=== PATIENT | male | born 1965 | race Caucasian/White ===

== ENCOUNTER 2016-06-25 05:57 | Emergency (ER) | payer BC ==
[2016-06-25 06:11] VITALS: BMI 33.1
--- NOTE | 2016-06-25 07:23 | PDOC ---
History of Present Illness - General History Source: Patient Exam Limitations: No Limitations - History of Present Illness Initial Comments: 06/25/16 07:27 The patient is a 50-year-old man with a significant past medical history of hypercholesterolemia, non-insulin dependent diabetes mellitus, gastroesophageal reflux disease, gastritis, diverticulitis who presents to the emergency department for further evaluation of abdominal pain. No fall, trauma. He reports experiencing symptoms of intermittent epigastric pain, described as burning sensations, that woke him up form his sleep this morning at approximately 04:00 AM. He admits that his symptoms are consistent with his history of gastroesophageal reflux disease. No nausea, vomiting. He took Tums for his symptoms, and it did not help. He reports to the ED, as his Tums did not help him and now he endorsing an associated cough that exacerbates his pain. No fever, chills, generalized weakness. No lightheadedness, dizziness, palpitations, headaches No diarrhea, constipation, urinary symptoms. Allergies: Latex. Rubber. Shellfish. IVP Dye. Past Surgical History: Cholecystectomy (2012). (2013) Social History: No tobacco and recreational drug use. Occasional ETOH use. Primary Care Physician: Dr. Brandie Nicole <Sherri Stark - Last Filed: 06/25/16 11:25> <Kristian Downing - Last Filed: 06/25/16 13:30> - General Chief Complaint: Chest Pain Stated Complaint: CHEST PAIN Time Seen by Provider: 06/25/16 07:23 Past History <Sherri Stark - Last Filed: 06/25/16 11:25> - Past Medical History Anemia: No Asthma: No Cancer: No Cardiac Disorders: No CVA: No COPD: No CHF: No Dementia: No Diabetes: Yes (NIDDM) GI Disorders: Yes (ACID REFLUX, DIVERTICULITIS;GASTRITIS) Disorders: No HTN: No Hypercholesterolemia: Yes Liver Disease: No Suicide Attempt (Hx): No Seizures: No Thyroid Disease: No - Surgical History Abdominal Surgery: No Appendectomy: No Cardiac Surgery: No Cholecystectomy: Yes (2012) Lung Surgery: No Neurologic Surgery: No Orthopedic Surgery: No - Immunization History Td Vaccination: Yes Immunization Up to Date: Yes - Psycho/Social/Smoking Cessation Hx Anxiety: No Suicidal Ideation: No Smoking Status: No Smoking History: Never smoked Years of Tobacco Use: 0 Have you smoked in the past 12 months: No Number of Cigarettes Smoked Daily: 0 Cigars Per Day: 0 Information on smoking cessation initiated: No Hx Alcohol Use: Yes (OCCASIONALLY) Drug/Substance Use Hx: No Substance Use Type: None Hx Substance Use Treatment: No <Kristian Downing - Last Filed: 06/25/16 13:30> - Past Medical History Allergies/Adverse Reactions: Allergies Allergy/AdvReac Type Severity Reaction Status Date / Time Latex, Natural Rubber Allergy Itching Verified 06/25/16 06:08 Shellfish Allergy Difficulty Verified 06/25/16 06:08 Breathing IVP DYE Allergy Hives Uncoded 06/25/16 06:08 Home Medications: Ambulatory Orders Metformin HCl [Glucophage -] 500 mg PO HS 07/18/12 Pnv/Iron,Carb/Om-3/FA/Fat 1 [Multivitamin with Minerals Cap] 1 cap PO DAILY Ezetimibe/Simvastatin [Vytorin 10-20 mg Tablet] 1 tab PO HS 10/02/15 Pantoprazole Sodium [Protonix -] 40 mg PO DAILY 06/25/16 Review of Systems - Review of Systems Able to Perform ROS?: Yes Comments:: 06/25/16 07:32 GENERAL/CONSTITUTIONAL: No fever or chills. No weakness. HEAD, EYES, EARS, NOSE AND THROAT: No change in vision. No ear pain or discharge. No sore throat. CARDIOVASCULAR: No chest pain or shortness of breath. RESPIRATORY: No cough, wheezing, or hemoptysis. GASTROINTESTINAL: Yes: Epigastric pain. No nausea, vomiting, diarrhea or constipation. GENITOURINARY: No dysuria, frequency, or change in urination. MUSCULOSKELETAL: No joint or muscle swelling or pain. No neck or back pain. SKIN: No rash NEUROLOGIC: No headache, vertigo, loss of consciousness, or change in strength/ sensation. ENDOCRINE: No increased thirst. No abnormal weight change. HEMATOLOGIC/LYMPHATIC: No anemia, easy bleeding, or history of blood clots. ALLERGIC/IMMUNOLOGIC: No hives or skin allergy. <Sherri Stark - Last Filed: 06/25/16 11:25> *Physical Exam - Vital Signs Last Vital Signs Temp Pulse Resp BP Pulse Ox 97.4 F L 101 H 20 136/82 98 06/25/16 07:17 06/25/16 07:17 06/25/16 06:08 06/25/16 07:17 06/25/16 07:17 - Physical Exam Comments: 06/25/16 07:33 GENERAL: Awake, alert, and fully oriented, in no acute distress HEAD: No signs of trauma EYES: PERRLA, EOMI, sclera anicteric, conjunctiva clear ENT: Auricles normal inspection, hearing grossly normal, nares patent, oropharynx clear without exudates. Moist mucosa NECK: Normal ROM, supple, no lymphadenopathy, JVD, or masses LUNGS: Breath sounds equal, clear to auscultation bilaterally. No wheezes, and no crackles HEART: Regular rate and rhythm, normal S1 and S2, no murmurs, rubs or gallops ABDOMEN: Soft, nontender, normoactive bowel sounds. No guarding, no rebound. No masses EXTREMITIES: Normal range of motion, no edema. No clubbing or cyanosis. No cords, erythema, or tenderness NEUROLOGICAL: Cranial nerves II through XII grossly intact. Normal speech. <Sherri Stark - Last Filed: 06/25/16 11:25> - Vital Signs Last Vital Signs Temp Pulse Resp BP Pulse Ox 97.4 F L 101 H 20 136/82 98 06/25/16 07:17 06/25/16 07:17 06/25/16 06:08 06/25/16 07:17 06/25/16 07:17 <Kristian Downing - Last Filed: 06/25/16 13:30> Heart Score/ECG Review #1 06/25/16 07:47 Reviewed and interpreted by Dr. Kristian Downing IMPRESSION: sinus tachycardia with a rate of 102 bpm. Normal axis. Normal intervals. No STEMI. No changes from previous EKG date 07/2014. <Sherri Stark - Last Filed: 06/25/16 11:25> ED Treatment Course - LABORATORY CBC & Chemistry Diagram: 06/25/16 07:40 06/25/16 07:41 <Sherri Stark - Last Filed: 06/25/16 11:25> - LABORATORY CBC & Chemistry Diagram: 06/25/16 07:40 06/25/16 07:41 <Kristian Downing - Last Filed: 06/25/16 13:30> Medical Decision Making - Medical Decision Making 06/25/16 11:[address] Kumar. 06/25/16 11:[address] Kumar. Case was discussed. <LincolnSherri - Last Filed: 06/25/16 11:25> *DC/Admit/Observation/Transfer - Attestations Scribe Attestion: 06/25/16 07:33 Documentation prepared by Sherri Stark, acting as medical practice manager for Kristian Downing DO. <Sherri Stark - Last Filed: 06/25/16 11:25> - Discharge Dispostion Admit: No - Attestations Physician Attestion: 06/25/16 07:23 I, Dr. Kristian Downing, attest that this document has been prepared under my direction and personally reviewed by me in its entirety. I further attest, that it accurately reflects all work, treatment, procedures and medical decision -making performed by me. <Kristian Downing - Last Filed: 06/25/16 13:30> Diagnosis at time of Disposition: Gastroesophageal reflux disease with esophagitis - Discharge Dispostion Disposition: HOME Condition at time of disposition: Improved - Referrals Referrals: Brandie Nicole MD [Primary Care Provider] - Kristian Kumar MD [Staff Physician] - - Patient Instructions Printed Discharge Instructions: DI for Gastroesophageal Reflux Disease (GERD) Additional Instructions: Mr Wen - I am sorry that this is so uncomfortable. I spoke with both your regular physician and your line operator. Please take your medicine and eat a very bland diet. Please call both of them tomorrow to get a follow up appointment with each of them for later this week. Return to us if worse or any problems. Be Very Careful about your diet. Best- Dr. Kristian Downing - Post Discharge Activity Work/School Note: Back to Work
[2016-06-25] MEDS ORDERED: METOCLOPRAMIDE HCL INJECTION 10 MG/2 ML VIAL IVPB ONE (07:28)
[2016-06-25] MEDS ORDERED: FAMOTIDINE 20 MG/50 ML IVPB 50 ML IVPB ONE ×2 (07:28→07:43)
[2016-06-25] MEDS ORDERED: SODIUM CHLORIDE 1,000 ML IV SCH ×2 (07:30→10:15)
[2016-06-25] MEDS ORDERED: diphenhydrAMINE HCL 12.5 MG/5 ML UNIT-DOSE CUPS PO ONE (07:32)
[2016-06-25] MEDS ORDERED: LIDOCAINE VISCOUS 2% ORAL/TOP 100 ML BOTTLE MM ONE (07:32)
[2016-06-25] MEDS ORDERED: MAG HYDROX/AL HYDROX/SIMETH 30 ML UNIT-DOSE CUP PO ONE (07:32)
[2016-06-25] MEDS ORDERED: METOCLOPRAMIDE HCL INJECTION 10 MG/2 ML VIAL ONE (07:42)
[2016-06-25] MEDS ORDERED: diphenhydrAMINE HCL 25 MG CAPSULE (FP) PO ONE (07:43)
[2016-06-25] MEDS ORDERED: MAG HYDROX/AL HYDROX/SIMETH 30 ML UNIT-DOSE CUP ONE (07:43)
[2016-06-25 07:55] LABS: BASOPHIL 0.3 % (0-2.0); EOSINOPHIL 0.3 % (0-4.5); MCH 30.3 pg (25.7-33.7); MCHC 34.7 g/dl (32.0-35.9); MEAN CELL VOLUME 87.2 fl (80-96); MEAN PLT VOLUME 7.1 fl (7.5-11.1); NEUTROPHILS 79.1 % (42.8-82.8); PLATELET COUNT 177 K/MM3 (134-434); RDW 13.3 % (11.9-15.9); WHITE BLOOD COUNT 9.5 K/mm3 (4.0-10.0)
[2016-06-25 08:12] LABS: INR 0.93 (0.82-1.09); PROTHROMBIN TIME (PATIENT) 10.2 SEC (9.98-11.88)
[2016-06-25 08:24] LABS: ALBUMIN 4.3 g/dl (3.4-5.0); ALK PHOS 62 U/L (45-117); ANION GAP 9 (8-16); BILIRUBIN,TOTAL 0.3 mg/dL (0.2-1.0); CALCIUM 9.9 mg/dL (8.5-10.1); CO2 29 mmol/L (21-32); COCKROFT - GAULT 134.28; CREATININE 0.9 mg/dL (0.7-1.3); GLUCOSE,RANDOM 147 mg/dL (74-106); SGOT/AST 15 U/L (15-37); SGPT/ALT 25 U/L (12-78); TOT PROT 7.4 g/dl (6.4-8.2)
[2016-06-25 08:25] LABS: BILIRUBIN,DIRECT 0.1 mg/dL (0.0-0.2); PHOSPHOROUS 2.6 mg/dL (2.5-4.9)
[2016-06-25 08:29] LABS: TROPONIN I < 0.02 ng/ml (0.00-0.05)
[2016-06-25 08:32] LABS: URINE APPEARANCE CLEAR; URINE BILIRUBIN NEGATIVE (NEGATIVE); URINE BLOOD NEGATIVE (NEGATIVE); URINE COLOR STRAW; URINE GLUCOSE (UA) NEGATIVE (NEGATIVE); URINE KETONE NEGATIVE (NEGATIVE); URINE LEUK ESTERASE NEGATIVE (NEGATIVE); URINE NITRITE NEGATIVE (NEGATIVE); URINE PROTEIN NEGATIVE (NEGATIVE); URINE UROBILINOGEN NEGATIVE E.U./dl (0.2-1.0)
--- NOTE | 2016-06-25 12:21 | EKG ---
Test Reason : Blood Pressure : / mmHG Vent. Rate : 102 BPM Atrial Rate : 102 BPM P-R Int : 170 ms QRS Dur : 094 ms QT Int : 330 ms P-R-T Axes : 056 -02 071 degrees QTc Int : 430 ms SINUS TACHYCARDIA INCOMPLETE RIGHT BUNDLE BRANCH BLOCK Confirmed by FILEMON STOO MD ([id number]) on 06/25/2016 12:21:19 PM Referred By: Confirmed By:FILEMON SOTO MD
[2016-06-25 13:23] LABS: TROPONIN I < 0.02 ng/ml (0.00-0.05)
[2016-06-25 13:29] VITALS: BP 135/84; PULSE 106; TEMP 98.3
== END 2016-06-25 13:44 | disposition home or self-care (01) ==
LOC: JER 05:57
PROC: 3E0337Z Introduction of Electrolytic and Water Balance Substance into Peripheral Vein, Percutaneous Approach (ICD-10-PCS; principal; 2016-06-25)
PROC: 3E033GC Introduction of Other Therapeutic Substance into Peripheral Vein, Percutaneous Approach (ICD-10-PCS; 2016-06-25)
DX: K21.0 Gastro-esophageal reflux disease with esophagitis (principal); E11.9 Type 2 diabetes mellitus without complications; Z79.84 Long term (current) use of oral hypoglycemic drugs; E78.00 Pure hypercholesterolemia, unspecified
CPT/HCPCS: 36415; 71010-TC; 80053; 81003; 82248; 82550; 83036; 83690; 83735; 84100; 84484; 85025; 85610; 93005; 93010; 99285-25

== ENCOUNTER 2016-08-21 06:59 | Day surgery (SDC) | payer BC ==
[2016-08-21 08:18] VITALS: BMI 34.4
[2016-08-21] MEDS ORDERED: PROPOFOL 20 ML ONE (08:52)
[2016-08-21] MEDS ORDERED: MIDAZOLAM HCL 2 MG/2 ML SINGLE DOSE VIAL ONE (08:53)
[2016-08-21 09:38] VITALS: TEMP 97.7
[2016-08-21 10:54] VITALS: BP 129/78; PULSE 95
--- NOTE | 2016-08-22 11:46 | PATH ---
Surgical Pathology Report Patient Name: TROY PEREZ [facility]. Rec. #: [id number] /Age/Gender: 1965 (Age: 50) / M Account: [id number] Location: [facility]-ENDOSCOPY Taken: 08/21/2016 Received: 08/21/2016 Reported: 08/22/2016 Physicians: Kristian Kumar M.D. Specimen(s) Received BX GASTRIC BODY & POLYP Clinical History GERD with esophagitis, dysphagia Schatzki's ring, bile reflux, gastritis, fundic polyp, hiatal hernia 3 cm Final Diagnosis STOMACH, BODY AND POLYP, BIOPSY: FOCALLY POLYPOID FRAGMENTS OF GASTRIC OXYNTIC MUCOSA WITH MILD TO MODERATE CHRONIC GASTRITIS WITH FOCAL SURFACE HYPERPLASTIC CHANGE. NEGATIVE FOR DYSPLASIA. IMMUNOSTAIN FOR H. PYLORI IS NEGATIVE FOR ORGANISMS. Electronically Signed Olu Hamm M.D. Gross Description Received in formalin, labeled "biopsy gastric body and polyp" are 2 garnica, irregular portions of soft tissue averaging 0.4 cm in greatest dimension. The specimens are submitted in toto in one cassette. 08/21/201608/21/2016
== END 2016-08-21 11:10 | disposition home or self-care (01) ==
LOC: JASU-ENDO 06:59
PROVIDERS: ATTEND Internal Medicine Gastroenterology
PROC: 0DB68ZX Excision of Stomach, Via Natural or Artificial Opening Endoscopic, Diagnostic (ICD-10-PCS; 2016-08-21)
PROC: 0D748ZZ Dilation of Esophagogastric Junction, Via Natural or Artificial Opening Endoscopic (ICD-10-PCS; principal; 2016-08-21 08:30)
DX: K22.2 Esophageal obstruction (principal); K44.9 Diaphragmatic hernia without obstruction or gangrene; K31.7 Polyp of stomach and duodenum; K29.70 Gastritis, unspecified, without bleeding; E11.9 Type 2 diabetes mellitus without complications
CPT/HCPCS: 88305-TC; 88342-TC

== ENCOUNTER 2017-02-01 09:08 | Emergency (ER) | payer BC ==
[2017-02-01 09:14] VITALS: BMI 35.4
--- NOTE | 2017-02-01 09:36 | PDOC ---
History of Present Illness <Jocelin Holly - Last Filed: 02/01/17 14:43> - General History Source: Patient Exam Limitations: No Limitations - History of Present Illness Initial Comments: 02/01/17 09:53 The patient is a 51 year old male employee from [employer], with a significant past medical history of NIDDM, HLD, GERD, Diverticulitis, GERD, Gastritis who presents to the emergency department with LLQ abdominal pain for the past 3 days. Patient reports gradual onset of constant, cramping, LLQ abdominal pain associated with diarrhea (nonbloody, nonmucoid). Patient reports the pain is similar to his Diverticulitis. Patient denies any exacerbating or alleviating factors. He denies taking any medications for his pain. Patient is concerned for mass and presents to the ED for further evaluation of his pain. Note, Patient was hospitalized twice for abdominal pain and was diagnosed with Diverticulitis. LBM was this morning, watery pellet stool. Patient denies fever, chills, nausea, vomit, constipation. Patient denies chest pain, headache or dizziness. Patient denies dysuria, frequency, urgency or hematuria. Patient denies sick contacts or recent travel. Allergies: Latex. Rubber. Shellfish. IVP Dye. Past Surgical History: Cholecystectomy (2012) Social History: No tobacco and recreational drug use. Occasional ETOH use. PCP: Dr. 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 Time Seen by Provider: 02/01/17 09:36 Past History - Past Medical History Anemia: No Asthma: No Cancer: No Cardiac Disorders: No CVA: No COPD: No CHF: No DVT: No Dementia: No Diabetes: Yes (NIDDM) GI Disorders: Yes (ACID REFLUX, DIVERTICULITIS;GASTRITIS) Disorders: No HTN: No Hypercholesterolemia: Yes Liver Disease: No Seizures: No Thyroid Disease: No - Surgical History Abdominal Surgery: No Appendectomy: No Cardiac Surgery: No Cholecystectomy: Yes (2012) Lung Surgery: No Neurologic Surgery: No Orthopedic Surgery: No - Immunization History Td Vaccination: Yes Immunization Up to Date: Yes - Suicide/Smoking/Psychosocial Hx Smoking Status: No Smoking History: Never smoked Years of Tobacco Use: 0 Have you smoked in the past 12 months: No Number of Cigarettes Smoked Daily: 0 Cigars Per Day: 0 Information on smoking cessation initiated: No Hx Alcohol Use: Yes (social) Drug/Substance Use Hx: No Substance Use Type: None Hx Substance Use Treatment: No <Jocelin Holly - Last Filed: 02/01/17 14:43> <Hali Ford - Last Filed: 02/01/17 15:06> - Past Medical History Allergies/Adverse Reactions: Allergies Allergy/AdvReac Type Severity Reaction Status Date / Time Latex, Natural Rubber Allergy Itching Verified 02/01/17 09:14 Shellfish Allergy Difficulty Verified 02/01/17 09:14 Breathing IVP DYE Allergy Hives Uncoded 02/01/17 09:14 Home Medications: Ambulatory Orders Metformin HCl [Glucophage -] 500 mg PO HS 07/18/12 Ezetimibe/Simvastatin [Vytorin 10-20 mg Tablet] 1 tab PO DAILY 08/21/16 Mag Carb/Al Hydrox/Alginic AC [Gaviscon Liquid] 15 - 30 ml PO Q6H PRN #355 oz Multivitamins [Multivit ([facility] Formulary)] 1 tab PO DAILY 08/21/16 Pantoprazole Sodium [Protonix] 40 mg PO DAILY 08/21/16 Ciprofloxacin/Ciprofloxa HCl [Cipro Xr 500 mg Tablet] 500 mg PO DAILY #7 tbmp.24hr 02/01/17 Metronidazole [Flagyl] 375 mg PO BID #14 capsule 02/01/17 Review of Systems - Review of Systems Able to Perform ROS?: Yes Comments:: 02/01/17 09:55 GENERAL/CONSTITUTIONAL: No fever or chills. No weakness. HEAD, EYES, EARS, NOSE AND THROAT: No change in vision. No ear pain or discharge. No sore throat. CARDIOVASCULAR: No chest pain or shortness of breath. RESPIRATORY: No cough, wheezing, or hemoptysis. GASTROINTESTINAL: +LLQ abdominal pain. +Diarrhea. No nausea, vomiting, constipation. GENITOURINARY: No dysuria, frequency, or change in urination. MUSCULOSKELETAL: No joint or muscle swelling or pain. No neck or back pain. SKIN: No rash NEUROLOGIC: No headache, vertigo, loss of consciousness, or change in strength/ sensation. ENDOCRINE: No increased thirst. No abnormal weight change. HEMATOLOGIC/LYMPHATIC: No anemia, easy bleeding, or history of blood clots. ALLERGIC/IMMUNOLOGIC: No hives or skin allergy. <Hali Ford - Last Filed: 02/01/17 15:06> *Physical Exam - Vital Signs Last Vital Signs Temp Pulse Resp BP Pulse Ox 98.2 F 107 H 19 127/93 99 02/01/17 09:11 02/01/17 09:11 02/01/17 09:11 02/01/17 09:11 02/01/17 09:11 <Jocelin Holly - Last Filed: 02/01/17 14:43> - Vital Signs Last Vital Signs Temp Pulse Resp BP Pulse Ox 98.2 F 107 H 19 127/93 99 02/01/17 09:11 02/01/17 09:11 02/01/17 09:11 02/01/17 09:11 02/01/17 09:11 - Physical Exam Comments: 02/01/17 09:55 GENERAL: Awake, alert, and fully oriented, in no acute distress HEAD: No signs of trauma EYES: PERRLA, EOMI, sclera anicteric, conjunctiva clear ENT: Auricles normal inspection, hearing grossly normal, nares patent, oropharynx clear without exudates. Moist mucosa NECK: Normal ROM, supple, no lymphadenopathy, JVD, or masses LUNGS: Breath sounds equal, clear to auscultation bilaterally. No wheezes, and no crackles HEART: Regular rate and rhythm, normal S1 and S2, no murmurs, rubs or gallops ABDOMEN: + LLQ tenderness. +Obese. Soft, normoactive bowel sounds. No guarding , no rebound. No masses EXTREMITIES: Normal range of motion, no edema. No clubbing or cyanosis. No cords, erythema, or tenderness NEUROLOGICAL: Cranial nerves II through XII grossly intact. Normal speech, normal gait SKIN: Warm, Dry, normal turgor, no rashes or lesions noted. <Hali Ford - Last Filed: 02/01/17 15:06> ED Treatment Course - LABORATORY CBC & Chemistry Diagram: 02/01/17 09:59 02/01/17 09:59 <Jocelin Holly - Last Filed: 02/01/17 14:43> - LABORATORY CBC & Chemistry Diagram: 02/01/17 09:59 02/01/17 09:59 - Medications Given in the ED: ED Medications Discontinued Medications Generic Name Dose Route Start Last Admin Trade Name Alva PRN Reason Stop Dose Admin Ketorolac Tromethamine 30 mg 02/01/17 09:41 02/01/17 09:46 Toradol Injection - IVPUSH 02/01/17 09:42 30 mg ONCE ONE Administration <Hali Ford - Last Filed: 02/01/17 15:06> Medical Decision Making - Medical Decision Making 02/01/17 15:05 CTAP w.o Contrast IMPRESSION: Findings consistent with acute diverticulitis of the left colon at the junction of the descending and sigmoid colon. No abscess is associated with this process. Clinical correlation and follow-up recommended. Please see above discussion. Reported By: Kaveh Herrera MD 02/01/17 1304 <Hali Ford - Last Filed: 02/01/17 15:06> *DC/Admit/Observation/Transfer - Discharge Dispostion Admit: No <Jocelin Holly - Last Filed: 02/01/17 14:43> - Attestations Scribe Attestion: 02/01/17 09:55 Documentation prepared by Hali Ford, acting as medical laboratory specialist for Jocelin Holly MD <Hali Ford - Last Filed: 02/01/17 15:06> Diagnosis at time of Disposition: Diverticulitis - Discharge Dispostion Disposition: HOME Condition at time of disposition: Good - Prescriptions Prescriptions: Ciprofloxacin/Ciprofloxa HCl [Cipro Xr 500 mg Tablet] 500 mg PO DAILY #7 tbmp.24hr Metronidazole [Flagyl] 375 mg PO BID #14 capsule - Referrals Referrals: Brandie Nicole MD [Primary Care Provider] - - Patient Instructions Printed Discharge Instructions: DI for Diverticulitis Additional Instructions: return to the ED for fever, severe pain, severe nausea and vomiting unable to tolerate food or antibiotics. You should stick to a clear liquid diet for today and a very light diet until you feel better. - Post Discharge Activity Forms/Work/School Notes: Back to Work
[2017-02-01] MEDS ORDERED: KETOROLAC TROMETHAMINE 30 MG/1 ML VIAL IVPUSH ONE (09:41)
[2017-02-01] MEDS ORDERED: KETOROLAC TROMETHAMINE 30 MG/1 ML VIAL ONE (09:53)
[2017-02-01 10:08] LABS: BASOPHIL 0.7 % (0-2.0); EOSINOPHIL 0.4 % (0-4.5); MCHC 33.7 g/dl (32.0-35.9); MEAN CELL VOLUME 89.1 fl (80-96); MEAN PLT VOLUME 7.3 fl (7.5-11.1); NEUTROPHILS 76.5 % (42.8-82.8); PLATELET COUNT 207 K/MM3 (134-434); RDW 13.3 % (11.9-15.9); WHITE BLOOD COUNT 11.5 K/mm3 (4.0-10.0)
[2017-02-01 10:34] LABS: ALBUMIN 4.1 g/dl (3.4-5.0); ALK PHOS 61 U/L (45-117); ANION GAP 5 (8-16); BILIRUBIN,TOTAL 0.6 mg/dL (0.2-1.0); CALCIUM 8.4 mg/dL (8.5-10.1); CO2 29 mmol/L (21-32); CREATININE 1.1 mg/dL (0.7-1.3); GLUCOSE,RANDOM 196 mg/dL (74-106); SGOT/AST 10 U/L (15-37); SGPT/ALT 25 U/L (12-78); TOT PROT 7.4 g/dl (6.4-8.2)
[2017-02-01 10:40] LABS: INR 0.98 (0.82-1.09); PROTHROMBIN TIME (PATIENT) 11.1 SEC (9.98-11.88)
[2017-02-01 10:42] LABS: ACTIVATED PTT 31.6 SECONDS (26.9-34.4)
[2017-02-01] MEDS ORDERED: METRONIDAZOLE 500 MG PREMIXED 500 MG/100 ML MG IVPB ONE ×2 (13:32→13:43)
[2017-02-01] MEDS: CIPROFLOXACIN 400 MG/D5W 400 MG/200 ML IVPB IVPB ONE ×2 (13:42→14:24)
[2017-02-01 15:10] VITALS: BP 116/69; PULSE 83; TEMP 98.1
== END 2017-02-01 15:44 | disposition home or self-care (01) ==
LOC: JER 09:08
PROC: 3E03329 Introduction of Other Anti-infective into Peripheral Vein, Percutaneous Approach (ICD-10-PCS; principal; 2017-02-01)
PROC: 3E0333Z Introduction of Anti-inflammatory into Peripheral Vein, Percutaneous Approach (ICD-10-PCS; 2017-02-01)
DX: K57.92 Diverticulitis of intestine, part unspecified, without perforation or abscess without bleeding (principal); E11.9 Type 2 diabetes mellitus without complications; I10 Essential (primary) hypertension; E78.5 Hyperlipidemia, unspecified; K21.9 Gastro-esophageal reflux disease without esophagitis
CPT/HCPCS: 36415; 74176-TC; 80053; 83690; 85025; 85610; 85730; 99283-25; Q9967

== ENCOUNTER 2017-04-03 12:58 | Emergency (ER) | payer BC ==
[2017-04-03 13:30] VITALS: BMI 34.4
--- NOTE | 2017-04-03 14:32 | PDOC ---
History of Present Illness - General History Source: Patient Exam Limitations: No Limitations - History of Present Illness Initial Comments: 04/03/17 15:16 The patient is a 51 year old female with a significant PMH of non-insulin dependent diabetes, hyperlipidemia, GERD, and diverticulitis who presents to the emergency department with persistent diarrhea beginning approximately 17 hours ago. The patient notes he has had about 10 episodes of non bloody diarrhea since about 9PM last night with some associated minimal diffuse abdominal discomfort. He denies eating anything unusual or out of the ordinary last night. He also notes some dehydration secondary to his diarrhea and minimal nasal congestion. The patient reports receiving a course of antibiotics back in January for treatment of a diverticulitis flare-up but denies antibiotic use since then. Reports this does not feel like his diverticulitis, more like when he has had the stomach flu in the past. The patient denies chest pain, shortness of breath, headache and dizziness. Denies fever, chills, nausea, vomit, and constipation. Denies dysuria, frequency, urgency and hematuria. Allergies: Latex, Natural rubber, IVP dye. Past surgical history: Cholecystectomy (2012). Social history: Occasional alcohol use. No reported cigarette or drug use. PCP: Dr. Nicole <Pop Carver - Last Filed: 04/03/17 15:17> <Edie Tate - Last Filed: 04/03/17 18:12> <Earnest Maurer - Last Filed: 04/04/17 20:02> - General Chief Complaint: Diarrhea Stated Complaint: DIARRHEA Time Seen by Provider: 04/03/17 13:53 Past History <Pop Carver - Last Filed: 04/03/17 15:17> <Edie Tate - Last Filed: 04/03/17 18:12> - Past Medical History Anemia: No Asthma: No Cancer: No Cardiac Disorders: No CVA: No COPD: No CHF: No DVT: No Dementia: No Diabetes: Yes (NIDDM) GI Disorders: Yes (ACID REFLUX, DIVERTICULITIS;GASTRITIS) Disorders: No HTN: No Hypercholesterolemia: Yes Liver Disease: No Seizures: No Thyroid Disease: No - Surgical History Abdominal Surgery: No Appendectomy: No Cardiac Surgery: No Cholecystectomy: Yes (2012) Lung Surgery: No Neurologic Surgery: No Orthopedic Surgery: No - Immunization History Td Vaccination: Yes Immunization Up to Date: Yes - Suicide/Smoking/Psychosocial Hx Smoking Status: No Smoking History: Never smoked Years of Tobacco Use: 0 Have you smoked in the past 12 months: No Number of Cigarettes Smoked Daily: 0 Cigars Per Day: 0 Information on smoking cessation initiated: No Hx Alcohol Use: No Drug/Substance Use Hx: No Substance Use Type: None Hx Substance Use Treatment: No <Earnest Maurer - Last Filed: 04/04/17 20:02> - Past Medical History Allergies/Adverse Reactions: Allergies Allergy/AdvReac Type Severity Reaction Status Date / Time Latex, Natural Rubber Allergy Itching Verified 04/03/17 13:25 Shellfish Allergy Difficulty Verified 04/03/17 13:25 Breathing IVP DYE Allergy Hives Uncoded 04/03/17 13:25 Home Medications: Ambulatory Orders Metformin HCl [Glucophage -] 500 mg PO HS 07/18/12 Multivitamins [Multivit ([facility] Formulary)] 1 tab PO DAILY 08/21/16 Omeprazole 20 mg PO DAILY 04/03/17 Rosuvastatin Calcium [Crestor] 10 mg PO DAILY 04/03/17 Review of Systems - Review of Systems Able to Perform ROS?: Yes Comments:: 04/03/17 15:16 GENERAL/CONSTITUTIONAL: (+) Dehydration. No fever or chills. No weakness. HEAD, EYES, EARS, NOSE AND THROAT: (+) Nasal congestion. No change in vision. No ear pain or discharge. No sore throat. GASTROINTESTINAL: (+) Diarrhea. No nausea, vomiting, or constipation. GENITOURINARY: No dysuria, frequency, or change in urination. CARDIOVASCULAR: No chest pain or shortness of breath. RESPIRATORY: No cough, wheezing, or hemoptysis. MUSCULOSKELETAL: No joint or muscle swelling or pain. No neck or back pain. SKIN: No rash NEUROLOGIC: No headache, vertigo, loss of consciousness, or change in strength/ sensation. ENDOCRINE: No increased thirst. No abnormal weight change. HEMATOLOGIC/LYMPHATIC: No anemia, easy bleeding, or history of blood clots. ALLERGIC/IMMUNOLOGIC: No hives or skin allergy. <Pop Carver - Last Filed: 04/03/17 15:17> *Physical Exam - Vital Signs Last Vital Signs Temp Pulse Resp BP Pulse Ox 98.5 F 104 H 17 129/85 98 04/03/17 13:25 04/03/17 13:25 04/03/17 13:25 04/03/17 13:25 04/03/17 13:25 - Physical Exam Comments: 04/03/17 15:16 GENERAL: Awake, alert, and fully oriented, in no acute distress HEAD: No signs of trauma EYES: PERRLA, EOMI, sclera anicteric, conjunctiva clear ENT: Auricles normal inspection, hearing grossly normal, nares patent, oropharynx clear without exudates. Moist mucosa NECK: Normal ROM, supple, no lymphadenopathy, JVD, or masses LUNGS: Breath sounds equal, clear to auscultation bilaterally. No wheezes, and no crackles HEART: Regular rate and rhythm, normal S1 and S2, no murmurs, rubs or gallops ABDOMEN: Soft, nontender, non distended, hyperactive bowel sounds. No guarding, no rebound. EXTREMITIES: Normal range of motion, no edema. No clubbing or cyanosis. No cords , erythema, or tenderness BACK: No midline spinal tenderness in cervical/thoracic/lumbar region NEUROLOGICAL: Normal speech, cranial nerves intact, negative pronator drift, 5/ 5 strength in all 4 extremities, normal sensation to light touch in all 4 extremities, normal cerebellar exam, normal gait, normal reflexes and tone SKIN: Warm, Dry, normal turgor, no rashes or lesions noted. <Pop Carver - Last Filed: 04/03/17 15:17> - Vital Signs Last Vital Signs Temp Pulse Resp BP Pulse Ox 98.5 F 104 H 17 129/85 98 04/03/17 13:25 04/03/17 13:25 04/03/17 13:25 04/03/17 13:25 04/03/17 13:25 <Edie Tate - Last Filed: 04/03/17 18:12> - Vital Signs Last Vital Signs Temp Pulse Resp BP Pulse Ox 98.5 F 104 H 17 129/85 98 04/03/17 13:25 04/03/17 13:25 04/03/17 13:25 04/03/17 13:25 04/03/17 13:25 <Earnest Maurer - Last Filed: 04/04/17 20:02> ED Treatment Course - LABORATORY CBC & Chemistry Diagram: 04/03/17 15:30 04/03/17 15:30 - ADDITIONAL ORDERS Additional order review: Laboratory Results 04/03/17 04/03/17 16:53 15:30 Sodium 138 Potassium 3.9 Chloride 102 Carbon Dioxide 27 Anion Gap 9 BUN 10 Creatinine 0.9 Creat Clearance w eGFR > 60 Random Glucose 145 H D Calcium 8.2 L Total Bilirubin 0.6 AST 34 D ALT 56 D Alkaline Phosphatase 61 Total Protein 7.3 Albumin 4.1 Lipase 107 Urine Color Straw Urine Appearance Clear Urine pH 6.0 Ur Specific [place] 1.004 Urine Protein Negative Urine Glucose (UA) Negative Urine Ketones Negative Urine Blood Negative Urine Nitrite Negative Urine Bilirubin Negative Urine Urobilinogen Negative Ur Leukocyte Esterase Negative 04/03/17 15:30 RBC 5.36 MCV 88.7 MCHC 34.1 RDW 13.8 MPV 7.3 L Neutrophils % 65.7 Lymphocytes % 20.2 D Monocytes % 12.8 H Eosinophils % 0.8 D Basophils % 0.5 - Medications Given in the ED: ED Medications Discontinued Medications Generic Name Dose Route Start Last Admin Trade Name Freq PRN Reason Stop Dose Admin Famotidine/Sodium Chloride 20 mg in 50 mls @ 100 mls/hr 04/03/17 15:24 16:35 Pepcid 20 Mg Premixed Ivpb - IVPB 04/03/17 15:53 100 mls/hr ONCE ONE Administration Sodium Chloride 1,000 ml 04/03/17 15:24 04/03/17 15:29 Normal Saline - IV 04/03/17 15:25 1,000 ml ONCE ONE Administration <Edie Tate - Last Filed: 04/03/17 18:12> - LABORATORY CBC & Chemistry Diagram: 04/03/17 15:30 04/03/17 15:30 <Earnest Maurer - Last Filed: 04/04/17 20:02> Medical Decision Making - Medical Decision Making 04/03/17 16:49 51-year-old male with multiple medical problems including diverticulitis presents emergency Department with multiple episodes of nonbloody diarrhea since last night and abdominal discomfort. Initial labs with tachycardia to 104 , however on my exam heart rate was 92. Exam concerning for mildly dry mucous membranes and hyperactive bowel sounds but no focal abdominal tenderness to palpation. We'll obtain labs, and symptomatic control. We'll also hydrate the patient. We'll hold off on imaging for now as patient does not have any focal tenderness. 04/03/17 17:02 Pt is feeling much better. Labs wnl. Rpt abd exam remains benign. Will hold off on imaging, discussed this with patient who feels this is not like his diverticulitis pain. He stated if his pain returns or has any concerning sxs he would return to ED. Pt has tolerated PO, is only pending UA at this time. If he remains clinically stable and US is negative, he can likely be DC. Pt signed out to Dr. Tate for dispo. <Earnest Maurer - Last Filed: 04/04/17 20:02> *DC/Admit/Observation/Transfer - Attestations Scribe Attestion: 04/03/17 15:16 Documentation prepared by Pop Carver, acting as manager medical for Earnest Maurer MD. <Pop Carver - Last Filed: 04/03/17 15:17> <Edie Tate - Last Filed: 04/03/17 18:12> <Earnest Maurer - Last Filed: 04/04/17 20:02> Diagnosis at time of Disposition: Diarrhea Qualifiers: Diarrhea type: unspecified type Qualified Code(s): R19.7 - Diarrhea, unspecified - Discharge Dispostion Disposition: HOME Condition at time of disposition: Stable - Referrals Referrals: Brandie Nicole MD [Primary Care Provider] - - Patient Instructions Printed Discharge Instructions: DI for Diarrhea and Traveler's Diarrhea -- Adult Additional Instructions: Please return if you experience worsening symptoms - Post Discharge Activity Forms/Work/School Notes: Back to Work
[2017-04-03] MEDS ORDERED: SODIUM CHLORIDE 0.9% 500 ML INFUS.BAG IV ONE (15:24)
[2017-04-03] MEDS ORDERED: FAMOTIDINE 20 MG/50 ML IVPB 20 MG/50 ML MG IVPB ONE ×2 (15:24→16:30)
[2017-04-03 15:36] LABS: BASO % 0.5 % (0-2.0); EOS % 0.8 % (0-4.5); HEMATOCRIT 47.6 % (35.4-49); HEMOGLOBIN 16.2 GM/dL (11.7-16.9); LYMPH % 20.2 % (8-40); MCH 30.3 pg (25.7-33.7); MCHC 34.1 g/dl (32.0-35.9); MEAN CELL VOLUME 88.7 fl (80-96); MEAN PLT VOLUME 7.3 fl (7.5-11.1); MONO % 12.8 % (3.8-10.2); NEUT % 65.7 % (42.8-82.8); PLATELET COUNT 187 K/MM3 (134-434); RBC 5.36 M/mm3 (4.00-5.60); RDW 13.8 % (11.9-15.9)
[2017-04-03 16:01] LABS: ALBUMIN 4.1 g/dl (3.4-5.0); ALK PHOS 61 U/L (45-117); ANION GAP 9 (8-16); BILIRUBIN,TOTAL 0.6 mg/dL (0.2-1.0); BLOOD UREA NITROGEN 10 mg/dL (7-18); CALCIUM 8.2 mg/dL (8.5-10.1); CHLORIDE 102 mmol/L (98-107); CO2 27 mmol/L (21-32); CREATININE 0.9 mg/dL (0.7-1.3); GLUCOSE,RANDOM 145 mg/dL (74-106); LIPASE 107 U/L (73-393); POTASSIUM 3.9 mmol/L (3.5-5.1); SGOT/AST 34 U/L (15-37); SGPT/ALT 56 U/L (12-78); SODIUM 138 mmol/L (136-145); TOT PROT 7.3 g/dl (6.4-8.2)
[2017-04-03 17:14] LABS: URINE APPEARANCE CLEAR; URINE BILIRUBIN NEGATIVE (NEGATIVE); URINE BLOOD NEGATIVE (NEGATIVE); URINE COLOR STRAW; URINE GLUCOSE (UA) NEGATIVE (NEGATIVE); URINE KETONE NEGATIVE (NEGATIVE); URINE LEUK ESTERASE NEGATIVE (NEGATIVE); URINE NITRITE NEGATIVE (NEGATIVE); URINE PROTEIN NEGATIVE (NEGATIVE); URINE UROBILINOGEN NEGATIVE mg/dL (0.2-1.0)
[2017-04-03 18:23] VITALS: BP 133/83; PULSE 90; TEMP 98
== END 2017-04-03 18:23 | disposition home or self-care (01) ==
LOC: JER 12:58
PROC: 3E033GC Introduction of Other Therapeutic Substance into Peripheral Vein, Percutaneous Approach (ICD-10-PCS; principal; 2017-04-03)
DX: R19.7 Diarrhea, unspecified (principal); E78.5 Hyperlipidemia, unspecified; E78.00 Pure hypercholesterolemia, unspecified; K21.9 Gastro-esophageal reflux disease without esophagitis; Z87.19 Personal history of other diseases of the digestive system; Z79.84 Long term (current) use of oral hypoglycemic drugs
CPT/HCPCS: 36415; 80053; 81003; 83690; 85025; 87086; 99282-25

== ENCOUNTER 2017-08-23 15:21 | Emergency (ER) | payer BC ==
[2017-08-23 15:35] VITALS: TEMP 98.2; BMI 29.0
--- NOTE | 2017-08-23 16:09 | PDOC ---
History of Present Illness - General History Source: Patient Exam Limitations: No Limitations - History of Present Illness Initial Comments: 08/23/17 17:28 The patient is a 51 year old female with a significant PMH of HLD, acid reflux, diverticulitis, gastritis, and NIDDM who presents to the emergency department with anxiety and depression secondary to his father passing away last year and recent friendship problems. The patient states he is here today because his coworkers has noticed that he has lost significant weight and looks more depressed than usual. The patient denies homicidal or suicidal ideation. The patient reports weight loss from 222 to 192 within the last few months. The patient does endorse that he has a lack of appetite and difficulty sleeping at night. Patient states Dr. Nicole prescribed remeron, which he took half a pill at night for approximately 7 days but then stopped taking the meds on his own and has since been having difficulty sleeping for approximately 6 weeks. The patient states he saw a therapist 2 days ago and is working on following with a psychiatrist. The patient had an appointment with Dr. Nicole five days ago and will receive his blood work results tomorrow. The patient denies chest pain, shortness of breath, headache and dizziness. Denies fever, chills, nausea, vomit, diarrhea and constipation. Denies dysuria, frequency, urgency and hematuria. Allergies: Latex, natural rubber, shellfish Past surgical history: Cholecystectomy. Social history: No reported alcohol, drug, or cigarette use. PCP: Dr. Nicole <Poppy Reina - Last Filed: 08/23/17 17:49> <Loreto Alfaro - Last Filed: 08/23/17 17:58> - General Chief Complaint: Psychiatric Stated Complaint: EVALUATION Time Seen by Provider: 08/23/17 16:08 Past History <Poppy Reina - Last Filed: 08/23/17 17:49> - Past Medical History Anemia: No Asthma: No Cancer: No Cardiac Disorders: No CVA: No COPD: No CHF: No DVT: No Dementia: No Diabetes: Yes (NIDDM) GI Disorders: Yes (ACID REFLUX, DIVERTICULITIS;GASTRITIS) Disorders: No HTN: No Hypercholesterolemia: Yes Liver Disease: No Seizures: No Thyroid Disease: No - Surgical History Abdominal Surgery: No Appendectomy: No Cardiac Surgery: No Cholecystectomy: Yes (2012) Lung Surgery: No Neurologic Surgery: No Orthopedic Surgery: No - Immunization History Td Vaccination: Yes Immunization Up to Date: Yes - Suicide/Smoking/Psychosocial Hx Smoking Status: No Smoking History: Never smoked Years of Tobacco Use: 0 Have you smoked in the past 12 months: No Number of Cigarettes Smoked Daily: 0 Cigars Per Day: 0 Hx Alcohol Use: Yes (occasional) Drug/Substance Use Hx: No Substance Use Type: None Hx Substance Use Treatment: No <Loreto Alfaro - Last Filed: 08/23/17 17:58> - Past Medical History Allergies/Adverse Reactions: Allergies Allergy/AdvReac Type Severity Reaction Status Date / Time Latex, Natural Rubber Allergy Itching Verified 08/23/17 15:30 Shellfish Allergy Difficulty Verified 08/23/17 15:30 Breathing IVP DYE Allergy Hives Uncoded 08/23/17 15:30 Home Medications: Ambulatory Orders metFORMIN HCL [Glucophage -] 500 mg PO HS 07/18/12 Multivitamins [Multivit ([facility] Formulary)] 1 tab PO DAILY 08/21/16 Omeprazole 20 mg PO DAILY 04/03/17 Rosuvastatin Calcium [Crestor] 10 mg PO DAILY 04/03/17 Review of Systems - Review of Systems Able to Perform ROS?: Yes Comments:: 08/23/17 17:27 ADULT ROS GENERAL/CONSTITUTIONAL: (+) Anxiety. (+) Depression. No fever or chills. No weakness. HEAD, EYES, EARS, NOSE AND THROAT: No change in vision. No ear pain or discharge. No sore throat. GASTROINTESTINAL: No nausea, vomiting, diarrhea or constipation. GENITOURINARY: No dysuria, frequency, or change in urination. CARDIOVASCULAR: No chest pain or shortness of breath. RESPIRATORY: No cough, wheezing, or hemoptysis. MUSCULOSKELETAL: No joint or muscle swelling or pain. No neck or back pain. SKIN: No rash NEUROLOGIC: No headache, vertigo, loss of consciousness, or change in strength/ sensation. ENDOCRINE: No increased thirst. No abnormal weight change. HEMATOLOGIC/LYMPHATIC: No anemia, easy bleeding, or history of blood clots. ALLERGIC/IMMUNOLOGIC: No hives or skin allergy. <Poppy Reina - Last Filed: 08/23/17 17:49> *Physical Exam - Vital Signs Last Vital Signs Temp Pulse Resp BP Pulse Ox 98.2 F 108 H 18 162/88 99 08/23/17 15:31 08/23/17 15:31 08/23/17 15:31 08/23/17 15:31 08/23/17 15:31 - Physical Exam Comments: 08/23/17 17:26 ADULT PHYSICAL EXAM Constitutional: (+) Appears anxious. (+) Flight of ideas. Awake, alert, oriented. No acute distress. Head: Normocephalic. Atraumatic Eyes: PERRL. EOMI. Conjunctivae are not pale. ENT: Mucous membranes are moist and intact. Posterior pharynx without exudates or erythema. Uvula midline. Neck: Supple. Full ROM. No lymphadenopathy. Cardiovascular: Regular rate. Regular rhythm. S1, S2 regular. Distal pulses are 2+ and symmetric. Pulmonary/Chest: No evidence of respiratory distress. Clear to auscultation bilaterally No wheezing, rales or rhonchi. Abdominal: Soft and non-distended. There is no tenderness. No rebound, guarding or rigidity. No organomegaly. No palpable masses. Good bowel sounds. Back: No CVA tenderness. Musculoskeletal: No edema. No cyanosis. No clubbing. Full range of motion in all extremities. Nocalf tenderness. Radial/pedal pulses are intact and 2+ bilaterally Skin: Skin is warm and dry. No petechiae. No purpura. Neurological: Alert and oriented to person, place, and time. Cranial nerves II -XII are grossly intact. Normal speech. Strength is grossly symmetric. No sensory deficits. Psychiatric: Good eye contact. Normal interaction, affect and behavior. <Poppy Reina - Last Filed: 08/23/17 17:49> - Vital Signs Last Vital Signs Temp Pulse Resp BP Pulse Ox 98.2 F 108 H 18 162/88 99 08/23/17 15:31 08/23/17 15:31 08/23/17 15:31 08/23/17 15:31 08/23/17 15:31 <Loreto Alfaro - Last Filed: 08/23/17 17:58> ED Treatment Course - LABORATORY CBC & Chemistry Diagram: 08/23/17 16:46 08/23/17 16:46 - ADDITIONAL ORDERS Additional order review: 08/23/17 16:46 RBC 5.44 MCV 89.8 MCHC 34.2 RDW 14.0 MPV 7.3 L Neutrophils % 65.8 Lymphocytes % 23.1 Monocytes % 9.9 Eosinophils % 0.5 Basophils % 0.7 <Poppy Reina - Last Filed: 08/23/17 17:49> - LABORATORY CBC & Chemistry Diagram: 08/23/17 16:46 08/23/17 16:46 <Loreto Alfaro - Last Filed: 08/23/17 17:58> Medical Decision Making - Medical Decision Making 08/23/17 16:55 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 <Poppy Reina - Last Filed: 08/23/17 17:49> - Medical Decision Making 08/23/17 17:04 a/p: 51yo male with hx of DM and HLD with anxiety and depression -denies SI/HI -follows with Dr. Nicole -was started on remeron, but stopped the medication after 7 days -states insomnia -concerned bc wt loss, insomnia, disinterested -appears anxious and depressed -has been following with an outpt therapist - but not currently on meds for depression or anxiety -will check labs, tsh, ekg 08/23/17 17:06 case discussed with Amrit Cortes NP - who recommends restarted remeron 15mg qhs recommends following up with Dr. He as outpt psych call placed to Dr. He 08/23/17 17:52 labs reviewed pt was unable to give urine sample pt states he has appt with Dr. Nicole tomorrow at 4p and an appt sunday morning with Dr. Peck (psych) at 11am discussed restarting remeron with the patient, but he requests waiting and speaking with Dr. Nicole tomorrow. Answered all questions discussed all reasons to return to the ED pt is stable for d/c to home <Loreto Alfaro - Last Filed: 08/23/17 17:58> *DC/Admit/Observation/Transfer - Attestations Physician Attestion: 08/23/17 17:28 Documentation prepared by Poppy Reina, acting as medical and scientific illustrator for Loreto Alfaro DO. <Poppy Reina - Last Filed: 08/23/17 17:49> - Discharge Dispostion Decision to Admit order: No - Attestations Scribe Attestion: 08/23/17 17:58 I, Dr. Loreto Alfaro, DO, attest that this document has been prepared under my direction and personally reviewed by me in its entirety. I further attest, that it accurately reflects all work, treatment, procedures and medical decision -making performed by me. <Loreto Alfaro - Last Filed: 08/23/17 17:58> Diagnosis at time of Disposition: Acute stress reaction - Discharge Dispostion Disposition: HOME Condition at time of disposition: Stable - Referrals Referrals: Brandie Nicole MD [Staff Physician] - - Patient Instructions Printed Discharge Instructions: DI for Anxiety -- Adult Additional Instructions: Please return to the ED immediately with any further concerns. Please keep your appointment with your PMD for tomorrow at 4p. Please keep your appointment sunday at 11am with Dr. Peck.
[2017-08-23 16:54] LABS: BASO % 0.7 % (0-2.0); EOS % 0.5 % (0-4.5); HEMATOCRIT 48.9 % (35.4-49); HEMOGLOBIN 16.7 GM/dL (11.7-16.9); LYMPH % 23.1 % (8-40); MCH 30.7 pg (25.7-33.7); MCHC 34.2 g/dl (32.0-35.9); MEAN CELL VOLUME 89.8 fl (80-96); MEAN PLT VOLUME 7.3 fl (7.5-11.1); MONO % 9.9 % (3.8-10.2); NEUT % 65.8 % (42.8-82.8); PLATELET COUNT 225 K/MM3 (134-434); RBC 5.44 M/mm3 (4.00-5.60); WHITE BLOOD COUNT 7.9 K/mm3 (4.0-10.0)
[2017-08-23 17:31] LABS: ALBUMIN 4.7 g/dl (3.4-5.0); ANION GAP 9 (8-16); BILIRUBIN,TOTAL 0.8 mg/dL (0.2-1.0); BLOOD UREA NITROGEN 14 mg/dL (7-18); CALCIUM 9.2 mg/dL (8.5-10.1); CHLORIDE 99 mmol/L (98-107); CO2 27 mmol/L (21-32); GLUCOSE,RANDOM 132 mg/dL (74-106); MAGNESIUM 2.3 mg/dL (1.8-2.4); POTASSIUM 4.6 mmol/L (3.5-5.1); SGOT/AST 12 U/L (15-37); SGPT/ALT 31 U/L (12-78); SODIUM 135 mmol/L (136-145)
[2017-08-23 17:32] LABS: ALK PHOS 66 U/L (45-117)
[2017-08-23 18:14] VITALS: BP 142/96; PULSE 102
[2017-08-23 18:17] LABS: URINE APPEARANCE CLEAR; URINE BILIRUBIN NEGATIVE (<2.0 mg/dL); URINE COLOR STRAW; URINE GLUCOSE (UA) NEGATIVE (NEGATIVE); URINE KETONE NEGATIVE (NEGATIVE); URINE LEUK ESTERASE NEGATIVE (NEGATIVE); URINE NITRITE NEGATIVE (NEGATIVE); URINE PROTEIN NEGATIVE (NEGATIVE); URINE UROBILINOGEN NEGATIVE mg/dL (0.2-1.0)
== END 2017-08-23 18:14 | disposition home or self-care (01) ==
LOC: JER 15:21
DX: F43.0 Acute stress reaction (principal); E11.9 Type 2 diabetes mellitus without complications; Z79.84 Long term (current) use of oral hypoglycemic drugs; E78.5 Hyperlipidemia, unspecified; Z87.19 Personal history of other diseases of the digestive system
CPT/HCPCS: 36415; 80053; 81003; 83735; 84443; 85025; 99282-25

== ENCOUNTER 2017-08-28 15:04 | Emergency (ER) | payer BC ==
--- NOTE | 2017-08-28 15:23 | PDOC ---
Rapid Medical Evaluation Time Seen by Provider: 08/28/17 15:17 Medical Evaluation: Allergies Allergy/AdvReac Type Severity Reaction Status Date / Time Latex, Natural Rubber Allergy Itching Verified 08/23/17 15:30 Shellfish Allergy Difficulty Verified 08/23/17 15:30 Breathing IVP DYE Allergy Hives Uncoded 08/23/17 15:30 08/28/17 15:17 Pt. presents to ED for R upper back pain and states he has trouble catching a deep breath. Exam: anxious, CTAB, R upper paraspinous muscles with palpable knot on the R. Orders: CXR Pt to proceed to ED for further evaluation
[2017-08-28 15:25] VITALS: BP 140/82; PULSE 97; TEMP 98.4; BMI 28.8
--- NOTE | 2017-08-28 15:47 | PDOC ---
History of Present Illness - General Chief Complaint: Back Pain Stated Complaint: ANXIOUS, BACK PAIN Time Seen by Provider: 08/28/17 15:17 - History of Present Illness Initial Comments: 51-year-old male with past medical history significant for acid reflux disease and type 2 diabetes as well as anxiety presents for evaluation of left-sided active pain 3 days. He first noticed pain after increasing his activity and swelling. His pain is well localized to the left thoracic musculature and does not radiate he has no other associated symptoms 08/28/17 15:41 Past History - Past Medical History Allergies/Adverse Reactions: Allergies Allergy/AdvReac Type Severity Reaction Status Date / Time Latex, Natural Rubber Allergy Itching Verified 08/28/17 15:25 Shellfish Allergy Difficulty Verified 08/28/17 15:25 Breathing IVP DYE Allergy Hives Uncoded 08/28/17 15:25 Home Medications: Ambulatory Orders metFORMIN HCL [Glucophage -] 500 mg PO HS 07/18/12 Multivitamins [Multivit ([facility] Formulary)] 1 tab PO DAILY 08/21/16 Omeprazole 20 mg PO DAILY 04/03/17 Rosuvastatin Calcium [Crestor] 10 mg PO DAILY 04/03/17 Cyclobenzaprine HCl [Flexeril 10 mg] 10 mg PO HS PRN #10 tablet 08/28/17 Anemia: No Asthma: No Cancer: No Cardiac Disorders: No CVA: No COPD: No CHF: No DVT: No Dementia: No Diabetes: Yes (NIDDM) GI Disorders: Yes (ACID REFLUX, DIVERTICULITIS;GASTRITIS) Disorders: No HTN: No Hypercholesterolemia: Yes Liver Disease: No Seizures: No Thyroid Disease: No - Surgical History Abdominal Surgery: No Appendectomy: No Cardiac Surgery: No Cholecystectomy: Yes (2012) Lung Surgery: No Neurologic Surgery: No Orthopedic Surgery: No - Immunization History Td Vaccination: Yes Immunization Up to Date: Yes - Suicide/Smoking/Psychosocial Hx Smoking Status: No Smoking History: Never smoked Years of Tobacco Use: 0 Have you smoked in the past 12 months: No Number of Cigarettes Smoked Daily: 0 Cigars Per Day: 0 Information on smoking cessation initiated: No Hx Alcohol Use: No Drug/Substance Use Hx: No Substance Use Type: None Hx Substance Use Treatment: No Review of Systems - Review of Systems Musculoskeletal: Yes: See HPI, Back Pain All Other Systems: Reviewed and Negative *Physical Exam - Vital Signs Last Vital Signs Temp Pulse Resp BP Pulse Ox 98.4 F 97 H 16 140/82 98 08/28/17 15:20 08/28/17 15:20 08/28/17 15:20 08/28/17 15:20 08/28/17 15:20 - Physical Exam Comments: GENERAL: The patient is awake, alert, and fully oriented, in no acute distress. HEAD: Normal with no signs of trauma. EYES: Pupils equal, round and reactive to light, extraocular movements intact, sclera anicteric, conjunctiva clear. ENT: Ears normal, nares patent, oropharynx clear without exudates. Moist mucous membranes. NECK: Normal range of motion, supple without lymphadenopathy, JVD, or masses. LUNGS: Breath sounds equal, clear to auscultation bilaterally. No wheezes, and no crackles. HEART: Regular rate and rhythm, normal S1 and S2 without murmur, rub or gallop. ABDOMEN: Soft, nontender, normoactive bowel sounds. No guarding, no rebound. No masses. EXTREMITIES: Normal range of motion, no edema. No clubbing or cyanosis. No cords, erythema, or tenderness. NEUROLOGICAL: Cranial nerves II through XII grossly intact. Normal speech, normal gait. PSYCH: Normal mood, normal affect. SKIN: Warm, Dry, normal turgor, no rashes or lesions noted. He has normal spine range of motion in cervical thoracic and lumbar. He has mild palpable left-sided parathoracic musculature spasm. He has no gross sensorimotor deficits in either bilateral upper extremities or lower extremities. She's neurovascularly intact. 08/28/17 15:42 Medical Decision Making - Medical Decision Making This is an anxious 51-year-old male with onset of mid back pain for 3 days after an increase in activity. He appears very anxious on examination. He's had long discussions with me about the use of testosterone and how changed his demeanor towards his family members. He states he has an appointment with the urologist tomorrow who will reimplement is testosterone therapy. He also confides in me about a breakup with his recent girlfriend that has really depressed him. He has no suicidal or homicidal ideation. 08/28/17 15:43 08/28/17 16:06 CXR Clear *DC/Admit/Observation/Transfer Diagnosis at time of Disposition: Strain of muscle at thorax level - Discharge Dispostion Disposition: HOME Condition at time of disposition: Stable Decision to Admit order: No - Prescriptions Prescriptions: Cyclobenzaprine HCl [Flexeril 10 mg] 10 mg PO HS PRN #10 tablet PRN Reason: Muscle Spasms - Referrals Referrals: Tommy Stanley [Non Staff, Medical] - - Patient Instructions Printed Discharge Instructions: DI for Back Strain or Sprain Additional Instructions: Return to the emergency room should her symptoms worsen or go unresolved. I believe he have a strain of the muscles in her mid back. The medication again he will make a tired. As we discussed please take it about a half hour before bedtime. Follow-up with her primary care physician and urologist as we discussed. I noticed that you did not have a primary care physician listed in the computer I've recommended a local physician for you. - Post Discharge Activity
== END 2017-08-28 16:03 | disposition home or self-care (01) ==
LOC: JERFT 15:04
DX: S29.012A Strain of muscle and tendon of back wall of thorax, initial encounter (principal); X58.XXXA Exposure to other specified factors, initial encounter; Y93.9 Activity, unspecified; Y92.9 Unspecified place or not applicable; F41.9 Anxiety disorder, unspecified; K21.9 Gastro-esophageal reflux disease without esophagitis; E11.9 Type 2 diabetes mellitus without complications; E78.00 Pure hypercholesterolemia, unspecified
CPT/HCPCS: 71046-TC-FY; 99281-25

== ENCOUNTER 2018-02-10 21:51 | Emergency (ER) | payer BC ==
[2018-02-10 21:57] VITALS: TEMP 98; BMI 24.6
--- NOTE | 2018-02-10 22:00 | PDOC ---
History of Present Illness - General Chief Complaint: Psychiatric Stated Complaint: ANXIETY, BACK PAIN Time Seen by Provider: 02/10/18 21:59 Past History - Past Medical History Allergies/Adverse Reactions: Allergies Allergy/AdvReac Type Severity Reaction Status Date / Time Latex, Natural Rubber Allergy Itching Verified 02/10/18 21:57 Shellfish Allergy Difficulty Verified 02/10/18 21:57 Breathing IVP DYE Allergy Hives Uncoded 02/10/18 21:57 Home Medications: Ambulatory Orders metFORMIN HCL [Glucophage -] 500 mg PO HS 07/18/12 Multivitamins [Multivit ([facility] Formulary)] 1 tab PO DAILY 08/21/16 Omeprazole 20 mg PO DAILY 04/03/17 Rosuvastatin Calcium [Crestor] 10 mg PO DAILY 04/03/17 Cyclobenzaprine HCl [Flexeril 10 mg] 10 mg PO HS PRN #10 tablet 08/28/17 Quetiapine Fumarate [Seroquel -] 25 mg PO HS 09/04/17 Sertraline HCl [Zoloft -] 50 mg PO DAILY 09/04/17 Anemia: No Asthma: No Cancer: No Cardiac Disorders: No CVA: No COPD: No CHF: No DVT: No Dementia: No Diabetes: Yes (NIDDM) GI Disorders: Yes (ACID REFLUX, DIVERTICULITIS;GASTRITIS) Disorders: No HTN: No Hypercholesterolemia: Yes Liver Disease: No Psychiatric Problems: Yes (anxiety, depression) Seizures: No Thyroid Disease: No - Surgical History Abdominal Surgery: No Appendectomy: No Cardiac Surgery: No Cholecystectomy: Yes (2012) Lung Surgery: No Neurologic Surgery: No Orthopedic Surgery: No - Immunization History Td Vaccination: Yes Immunization Up to Date: Yes - Suicide/Smoking/Psychosocial Hx Smoking Status: No Smoking History: Unknown if ever smoked Years of Tobacco Use: 0 Have you smoked in the past 12 months: No Number of Cigarettes Smoked Daily: 0 Cigars Per Day: 0 Information on smoking cessation initiated: No Hx Alcohol Use: No Drug/Substance Use Hx: No Substance Use Type: None Hx Substance Use Treatment: No *Physical Exam - Vital Signs Last Vital Signs Temp Pulse Resp BP Pulse Ox 98.0 F 111 H 16 147/89 100 02/10/18 21:55 02/10/18 21:55 02/10/18 21:55 02/10/18 21:55 02/10/18 21:55 Moderate Sedation - Procedure Monitoring Vital Signs: Procedure Monitoring Vital Signs Temperature 98.0 F 02/10/18 21:55 Pulse Rate 111 H 02/10/18 21:55 Respiratory Rate 16 02/10/18 21:55 Blood Pressure 147/89 02/10/18 21:55 O2 Sat by Pulse Oximetry (%) 100 02/10/18 21:55 *DC/Admit/Observation/Transfer - Referrals Referrals: Brandie Nicole MD [Primary Care Provider] - - Patient Instructions - Post Discharge Activity
--- NOTE | 2018-02-10 22:46 | PDOC ---
History of Present Illness - General Chief Complaint: Psychiatric Stated Complaint: ANXIETY, BACK PAIN Time Seen by Provider: 02/10/18 21:59 History Source: Patient Exam Limitations: No Limitations - History of Present Illness Initial Comments: 02/10/18 22:39 Patient is a 52 year old male with h/o HTN, anxiety, depression c/o shaky and not sleeping. Patient states he changed psychiatrist and had a change in his meds. He is being currently being weened off the Klonipin and Remeron, last night took 0.25mg Klonipin, and his Serterline dose was 100mg po, but with no improvement. He called his psych and was told to take 1mg of the Klonipin but he did not. States that few weeks ago had similar symptoms and went to [place] and they told him he was in withdrawal given 1mg Klonipin and felt better. States since being on the meds has been having trouble crying, laughing , eating. Denies any SI or HI. PMD: Dr. Garg PSYCH: Dr. Avery GENERAL/CONSTITUTIONAL: [No fever or chills. No weakness. (+) weight change - loss since September.] HEAD, EYES, EARS, NOSE AND THROAT: [No change in vision. No ear pain or discharge. No sore throat.] CARDIOVASCULAR: [No chest pain or shortness of breath.] RESPIRATORY: [No cough, wheezing, or hemoptysis.] GASTROINTESTINAL: [No nausea, vomiting, diarrhea or constipation. No rectal bleeding.] GENITOURINARY: [No dysuria, frequency, or change in urination.] MUSCULOSKELETAL: [No joint or muscle swelling or pain. No neck or back pain.] SKIN AND BREASTS: [No rash or easy bruising.] NEUROLOGIC: [No headache, vertigo, loss of consciousness, or loss of sensation.] PSYCHIATRIC: (+) depression or anxiety.] ENDOCRINE: [No increased thirst. No abnormal weight change.] HEMATOLOGIC/LYMPHATIC: [No anemia, easy bleeding, or history of blood clots.] ALLERGIC/IMMUNOLOGIC: [No hives or skin allergy. No latex allergy.] GENERAL: [The patient is awake, alert, and fully oriented, in no acute distress. ] HEAD: [Normal with no signs of trauma.] EYES: [Pupils equal, round and reactive to light, extraocular movements intact, sclera anicteric, conjunctiva clear.] ENT: [Ears normal, nares patent, oropharynx clear without exudates. Moist mucous membranes.] NECK: [Normal range of motion, supple without lymphadenopathy, JVD, or masses.] LUNGS: [Breath sounds equal, clear to auscultation bilaterally. No wheezes, and no crackles.] HEART: [Regular rate and rhythm, normal S1 and S2 without murmur, rub.] ABDOMEN: [Soft, nontender, normoactive bowel sounds. No guarding, no rebound. No masses.] EXTREMITIES: [Normal range of motion, no edema. No clubbing or cyanosis. No cords, erythema, or tenderness.] NEUROLOGICAL: [Cranial nerves II through XII grossly intact. Normal speech, normal gait, 5/5 strength, (+) tremors.] PSYCH: [anxious mood - repeating sentenses, flat affect.] SKIN: [Warm, Dry, normal turgor, no rashes or lesions noted.] Past History - Past Medical History Allergies/Adverse Reactions: Allergies Allergy/AdvReac Type Severity Reaction Status Date / Time Latex, Natural Rubber Allergy Itching Verified 02/10/18 21:57 Shellfish Allergy Difficulty Verified 02/10/18 21:57 Breathing IVP DYE Allergy Hives Uncoded 02/10/18 21:57 Home Medications: Ambulatory Orders metFORMIN HCL [Glucophage -] 500 mg PO HS 07/18/12 Multivitamins [Multivit ([facility] Formulary)] 1 tab PO DAILY 08/21/16 Omeprazole 20 mg PO DAILY 04/03/17 Rosuvastatin Calcium [Crestor] 10 mg PO HS 04/03/17 Cyclobenzaprine HCl [Flexeril 10 mg] 10 mg PO HS PRN #10 tablet 08/28/17 Quetiapine Fumarate [Seroquel -] 50 mg PO HS 09/04/17 Sertraline HCl [Zoloft -] 100 mg PO DAILY 09/04/17 Amlodipine Besylate [Norvasc -] 5 mg PO DAILY 02/11/18 Clonazepam [Klonopin] 1 mg PO DAILY 02/11/18 Mirtazapine 15 mg PO DAILY 02/11/18 Anemia: No Asthma: No Cancer: No Cardiac Disorders: No CVA: No COPD: No CHF: No DVT: No Dementia: No Diabetes: Yes (NIDDM) GI Disorders: Yes (ACID REFLUX, DIVERTICULITIS;GASTRITIS) Disorders: No HTN: No Hypercholesterolemia: Yes Liver Disease: No Psychiatric Problems: Yes (anxiety, depression) Seizures: No Thyroid Disease: No - Surgical History Abdominal Surgery: No Appendectomy: No Cardiac Surgery: No Cholecystectomy: Yes (2012) Lung Surgery: No Neurologic Surgery: No Orthopedic Surgery: No - Immunization History Td Vaccination: Yes Immunization Up to Date: Yes - Suicide/Smoking/Psychosocial Hx Smoking Status: No Smoking History: Unknown if ever smoked Years of Tobacco Use: 0 Have you smoked in the past 12 months: No Number of Cigarettes Smoked Daily: 0 Cigars Per Day: 0 Information on smoking cessation initiated: No Hx Alcohol Use: No Drug/Substance Use Hx: No Substance Use Type: None Hx Substance Use Treatment: No *Physical Exam - Vital Signs Last Vital Signs Temp Pulse Resp BP Pulse Ox 98.0 F 111 H 16 147/89 100 02/10/18 21:55 02/10/18 21:55 02/10/18 21:55 02/10/18 21:55 02/10/18 21:55 Moderate Sedation - Procedure Monitoring Vital Signs: Procedure Monitoring Vital Signs Temperature 98.0 F 02/10/18 21:55 Pulse Rate 111 H 02/10/18 21:55 Respiratory Rate 16 02/10/18 21:55 Blood Pressure 147/89 02/10/18 21:55 O2 Sat by Pulse Oximetry (%) 100 02/10/18 21:55 Medical Decision Making - Medical Decision Making 02/10/18 22:39 Patient is a 52 year old male with h/o HTN, anxiety, depression c/o shaky and not sleeping. will give Klonipin 1mg po reassess 02/10/18 23:37 Patient is improved. shaking resolved and vs has normalized. 02/10/18 23:38 Selected Entries 02/10/18 23:21 Pulse Rate [ 89 Right Radial] Respiratory 18 Rate Blood Pressure 140/93 [Right Arm] O2 Sat by Pulse 100 Oximetry (%) obtained EKG and if no acute finding will discharge home EKG: SR rate 73, NAD, (-) ST-T wave changes I discussed the physical exam findings, ancillary test results and final diagnoses with the patient. I answered all of the patient's questions. The patient was satisfied with the care received and felt comfortable with the discharge plan and treatment plan. The Patient agrees to follow up with the primary care physician within 24-72 hours. *DC/Admit/Observation/Transfer Diagnosis at time of Disposition: Anxiety - Discharge Dispostion Disposition: HOME Condition at time of disposition: Stable - Referrals Referrals: Brandie Nicole MD [Primary Care Provider] - - Patient Instructions Printed Discharge Instructions: DI for Anxiety -- Adult Additional Instructions: Your Discharge Instructions: You must call primary care physician within 24 hours to arrange follow-up. Return to the Emergency Department with any new, persistent or worsening symptoms, for fever, chills, SOB, dizziness or any other concerning changes that may occur. please keep. psychiatrist tomorrow. - Post Discharge Activity
[2018-02-10 23:22] VITALS: BP 140/93; PULSE 89
--- NOTE | 2018-02-11 15:19 | EKG ---
Test Reason : Blood Pressure : / mmHG Vent. Rate : 073 BPM Atrial Rate : 073 BPM P-R Int : 168 ms QRS Dur : 098 ms QT Int : 390 ms P-R-T Axes : 057 015 062 degrees QTc Int : 429 ms SINUS RHYTHM OTHERWISE NORMAL ECG WHEN COMPARED WITH ECG OF 04-SEP-2017 21:10, INCOMPLETE RIGHT BUNDLE BRANCH BLOCK IS NO LONGER PRESENT Confirmed by MANDO BALLESTEROS MD ([id number]) on 02/11/2018 3:18:37 PM Referred By: Confirmed By:MANDO BALLESTEROS MD
== END 2018-02-11 01:02 | disposition home or self-care (01) ==
LOC: JER 21:51
DX: F41.8 Other specified anxiety disorders (principal); I10 Essential (primary) hypertension; E78.00 Pure hypercholesterolemia, unspecified; E11.9 Type 2 diabetes mellitus without complications
CPT/HCPCS: 93005; 93010; 99282-25

== ENCOUNTER 2018-03-02 21:29 | Inpatient (IN) | payer BC ==
--- NOTE | 2018-03-03 00:35 | PDOC ---
Attending Attestation - ED Attending Attestation I have performed the following: I have examined & evaluated the patient, The case was reviewed & discussed with the resident, I agree w/resident's findings & plan - Physicial Exam PE: 03/03/18 01:32 - Medical Decision Making 03/03/18 01:32 03/03/18 01:42 <Yashira Naranjo - Last Filed: 03/03/18 01:42> - Resident Resident Name: Olu Clifton - ED Attending Attestation I have performed the following: I have examined & evaluated the patient, The case was reviewed & discussed with the resident, I agree w/resident's findings & plan - HPI HPI: 03/03/18 20:23 Pt comes with anxiety attack and what is likely withdrawal from his anxiolytics. - Physicial Exam PE: 03/03/18 20:24 Agree with resident exam. Pt is afebrile. - Medical Decision Making 03/03/18 20:24 Pt will be admitted because he was found to be hyponatremic and he reports that he has not been eating well. 03/03/18 20:24 <Delia Bailey - Last Filed: 03/03/18 20:25>
[2018-03-03 01:19] LABS: BASO % 0.6 % (0-2.0); EOS % 1.1 % (0-4.5); HEMATOCRIT 47.1 % (35.4-49); HEMOGLOBIN 16.5 GM/dL (11.7-16.9); LYMPH % 34.7 % (8-40); MCH 30.5 pg (25.7-33.7); MCHC 35.1 g/dl (32.0-35.9); MEAN CELL VOLUME 86.9 fl (80-96); MEAN PLT VOLUME 6.9 fl (7.5-11.1); MONO % 12.9 % (3.8-10.2); NEUT % 50.7 % (42.8-82.8); PLATELET COUNT 277 K/MM3 (134-434); RBC 5.42 M/mm3 (4.00-5.60); RDW 14.3 % (11.9-15.9); WHITE BLOOD COUNT 8.1 K/mm3 (4.0-10.0)
--- NOTE | 2018-03-03 01:33 | PDOC ---
History of Present Illness - General History Source: Patient Exam Limitations: No Limitations - History of Present Illness Initial Comments: 03/03/18 04:00 52 yo M with a hx of esophageal dilation (most recent 2013; Edytaki ring), HTN , DM, and anxiety presents to the emergency department with progressive dysphagia and SOB. Per the patient, the dysphagia has been ongoing since June with now dry heaves occurring with solid food ingestion, but denies sensation of food feeling stuck. Per the patient, he has been reduced to progressively softer foods only tolerating cottage cheese today with water. Concurrently, he has been having increased anxiety and SOB since tapering off his seroquel and klonopin with cessation of these medications 02/26/2018. He has an appointment with Dr. Root this Sunday. Denies the following: fever, chills, visual changes, chest pain, vomiting, dysuria, abdominal pain, diarrhea, hematochezia, leg pain and swelling. Patient was weaned off his klonopin because the family states they do not wish to have him on benzos. Psychiatry: followed by Dr. Avery Meds: zoloft, propanolol. Allergies: IV dye Social: Denies tobacco, alcohol, and substance abuse PMD: Dr. Palacio <Olu Clifton - Last Filed: 03/03/18 04:00> <Loreto Alfaro - Last Filed: 03/03/18 16:12> <Yashira Naranjo - Last Filed: 03/03/18 16:29> - General Chief Complaint: Shortness of Breath Stated Complaint: TROUBLE SWALLOWING Time Seen by Provider: 03/03/18 00:35 Past History - Past Medical History Anemia: No Asthma: No Cancer: No Cardiac Disorders: No CVA: No COPD: No CHF: No DVT: No Dementia: No Diabetes: Yes (NIDDM) GI Disorders: Yes (ACID REFLUX, DIVERTICULITIS;GASTRITIS) Disorders: No HTN: No Hypercholesterolemia: Yes Liver Disease: No Psychiatric Problems: Yes (anxiety, depression) Seizures: No Thyroid Disease: No - Surgical History Abdominal Surgery: No Appendectomy: No Cardiac Surgery: No Cholecystectomy: Yes (2012) Lung Surgery: No Neurologic Surgery: No Orthopedic Surgery: No - Immunization History Td Vaccination: Yes Immunization Up to Date: Yes - Suicide/Smoking/Psychosocial Hx Smoking Status: No Smoking History: Never smoked Years of Tobacco Use: 0 Have you smoked in the past 12 months: No Number of Cigarettes Smoked Daily: 0 Cigars Per Day: 0 Hx Alcohol Use: No Drug/Substance Use Hx: No Substance Use Type: None Hx Substance Use Treatment: No <Olu Clifton - Last Filed: 03/03/18 04:00> <Loreto Alfaro - Last Filed: 03/03/18 16:12> <Yashira Naranjo - Last Filed: 03/03/18 16:29> - Past Medical History Allergies/Adverse Reactions: Allergies Allergy/AdvReac Type Severity Reaction Status Date / Time Latex, Natural Rubber Allergy Itching Verified 03/02/18 21:42 Shellfish Allergy Difficulty Verified 03/02/18 21:42 Breathing IVP DYE Allergy Hives Uncoded 03/02/18 21:42 Home Medications: Ambulatory Orders Propranolol HCl 40 mg PO BID 03/02/18 Sertraline HCl [Zoloft] 150 mg PO DAILY 03/02/18 *Physical Exam - Vital Signs Last Vital Signs Temp Pulse Resp BP Pulse Ox 97.5 F L 74 18 154/94 99 03/02/18 21:34 03/02/18 21:34 03/02/18 21:34 03/02/18 21:34 03/02/18 21:34 <Olu Clifton - Last Filed: 03/03/18 04:00> - Vital Signs Last Vital Signs Temp Pulse Resp BP Pulse Ox 98.7 F 78 18 122/65 100 03/03/18 15:43 03/03/18 15:43 03/03/18 15:43 03/03/18 15:43 03/03/18 15:43 <Loreto Alfaro - Last Filed: 03/03/18 16:12> - Vital Signs Last Vital Signs Temp Pulse Resp BP Pulse Ox 98.7 F 78 18 122/65 100 03/03/18 15:43 03/03/18 15:43 03/03/18 15:43 03/03/18 15:43 03/03/18 15:43 <Yashira Naranjo - Last Filed: 03/03/18 16:29> Moderate Sedation - Procedure Monitoring Vital Signs: Procedure Monitoring Vital Signs Temperature 97.5 F L 03/02/18 21:34 Pulse Rate 74 03/02/18 21:34 Respiratory Rate 18 03/02/18 21:34 Blood Pressure 154/94 03/02/18 21:34 O2 Sat by Pulse Oximetry (%) 99 03/02/18 21:34 <Olu Clifton - Last Filed: 03/03/18 04:00> - Procedure Monitoring Vital Signs: Procedure Monitoring Vital Signs Temperature 98.7 F 03/03/18 15:43 Pulse Rate 78 03/03/18 15:43 Respiratory Rate 18 03/03/18 15:43 Blood Pressure 122/65 03/03/18 15:43 O2 Sat by Pulse Oximetry (%) 100 03/03/18 15:43 <Loreto Alfaro - Last Filed: 03/03/18 16:12> - Procedure Monitoring Vital Signs: Procedure Monitoring Vital Signs Temperature 98.7 F 03/03/18 15:43 Pulse Rate 78 03/03/18 15:43 Respiratory Rate 18 03/03/18 15:43 Blood Pressure 122/65 03/03/18 15:43 O2 Sat by Pulse Oximetry (%) 100 03/03/18 15:43 <Yashira Naranjo - Last Filed: 03/03/18 16:29> ED Treatment Course - LABORATORY CBC & Chemistry Diagram: 03/03/18 01:09 03/03/18 01:09 - ADDITIONAL ORDERS Additional order review: 03/03/18 01:09 RBC 5.42 MCV 86.9 MCHC 35.1 RDW 14.3 MPV 6.9 L Neutrophils % 50.7 D Lymphocytes % 34.7 D Monocytes % 12.9 H Eosinophils % 1.1 Basophils % 0.6 - RADIOLOGY Radiology Studies Ordered: Category Date Time Status CXRPORT [CHEST X-RAY PORTABLE*] [RAD] Stat Radiology 03/03/18 01:29 Ordered <Olu Clifton - Last Filed: 03/03/18 04:00> - LABORATORY CBC & Chemistry Diagram: 03/03/18 01:09 03/03/18 01:09 - ADDITIONAL ORDERS Additional order review: 03/03/18 01:09 RBC 5.42 MCV 86.9 MCHC 35.1 RDW 14.3 MPV 6.9 L Neutrophils % 50.7 D Lymphocytes % 34.7 D Monocytes % 12.9 H Eosinophils % 1.1 Basophils % 0.6 - Medications Given in the ED: ED Medications Discontinued Medications Generic Name Dose Route Start Last Admin Trade Name Freq PRN Reason Stop Dose Admin Alprazolam 0.25 mg 03/03/18 01:42 03/03/18 03:02 Xanax - PO 03/03/18 01:43 0.25 mg ONCE ONE Administration Sodium Chloride 1,000 ml 03/03/18 02:26 03/03/18 03:19 Normal Saline - IV 03/03/18 02:27 1,000 ml ONCE ONE Administration <Loreto Alfaro - Last Filed: 03/03/18 16:12> - LABORATORY CBC & Chemistry Diagram: 03/03/18 01:09 03/03/18 01:09 - ADDITIONAL ORDERS Additional order review: 03/03/18 01:09 RBC 5.42 MCV 86.9 MCHC 35.1 RDW 14.3 MPV 6.9 L Neutrophils % 50.7 D Lymphocytes % 34.7 D Monocytes % 12.9 H Eosinophils % 1.1 Basophils % 0.6 - Medications Given in the ED: ED Medications Discontinued Medications Generic Name Dose Route Start Last Admin Trade Name Freq PRN Reason Stop Dose Admin Alprazolam 0.25 mg 03/03/18 01:42 03/03/18 03:02 Xanax - PO 03/03/18 01:43 0.25 mg ONCE ONE Administration Sodium Chloride 1,000 ml 03/03/18 02:26 03/03/18 03:19 Normal Saline - IV 03/03/18 02:27 1,000 ml ONCE ONE Administration <Yashira Naranjo - Last Filed: 03/03/18 16:29> *DC/Admit/Observation/Transfer <Olu Clifton - Last Filed: 03/03/18 04:00> - Discharge Dispostion Decision to Admit order: Yes <Loreto Alfaro - Last Filed: 03/03/18 16:12> - Discharge Dispostion Decision to Admit order: Yes <Yashira Naranjo - Last Filed: 03/03/18 16:29> Diagnosis at time of Disposition: Hyponatremia - Discharge Dispostion Condition at time of disposition: Good
[2018-03-03] MEDS ORDERED: ALPRAZolam 0.25 MG TABLET PO ONE (01:42)
--- NOTE | 2018-03-03 01:42 | PDOC ---
Attending Attestation - Resident Resident Name: EtienneOlu - ED Attending Attestation I have performed the following: I have examined & evaluated the patient, The case was reviewed & discussed with the resident, I agree w/resident's findings & plan - HPI HPI: 03/03/18 02:07 Bettye 52 YOM with h/o HTN, anxiety, depression, DM, GERD, Diverticulitis, gastritis, Schatskis rings s/p dilation and hiatal hernia presenting with difficulty swallowing/dysphagia, though eating egg omelette yesterday and tolerating fluids. +Dyspnea x months. no cp, no AP, n/v/d, dizziness, BHAKTA. has anxiety, recently weaned off klonopin. Has had outpatient GI eval, EGD unremarkable and known history of Schatskis and hiatal hernia. 03/03/18 16:29 - Physicial Exam PE: 03/03/18 01:43 NAD, well appearing, +anxious, tremulous. PERRL, EOMI, MMM, nl conjunctiva, anicteric; neck supple. lungs clear, RRR, abdomen soft nontender. RODRIGUEZ x4, no focal neuro deficits. No peripheral edema. normal color for ethnicity, WWP. - Medical Decision Making 03/03/18 01:42 See HPI for details Vital signs reviewed, wnl. DDx metabolic/electrolyte derangements, ACS, shatskis ring, stricture, GERD, anxiety reaction. Prior notes reviewed, including admissions, discharges and consultations. laboratory results and imaging reviewed, basic labs and lytes +hyponatremia; remainder normal. CXR_wnl Cardiac panel_trop neg EKG normal sinus rhythm, no interval abnormalities, narrow QRS, ST and T wave segments and morphology normal. Nonspecific T wave abnormalities ED course: no complications or acute events. - declined anxiolytic. Dispo: admit for hyponatremia, gentle hydration and medical management of sx. GI cs as inpatient. 03/03/18 16:29 03/03/18 16:29 Heart Score/ECG Review - ECG Impressions Normal ECG: Yes Comment:: 03/03/18 02:54 EKG normal sinus rhythm, no interval abnormalities, narrow QRS, ST and T wave segments and morphology normal. Nonspecific T wave abnormalities
[2018-03-03] MEDS ORDERED: ALPRAZolam 0.25 MG TABLET ONE (01:48)
[2018-03-03 01:50] LABS: ALBUMIN 4.4 g/dl (3.4-5.0); ALK PHOS 69 U/L (45-117); ANION GAP 12 MMOL/L (8-16); BILIRUBIN,TOTAL 0.9 mg/dL (0.2-1); BLOOD UREA NITROGEN 11 mg/dL (7-18); CHLORIDE 94 mmol/L (98-107); CO2 23 mmol/L (21-32); CREATININE 0.8 mg/dL (0.55-1.3); GLUCOSE,RANDOM 129 mg/dL (74-106); LIPASE 146 U/L (73-393); POTASSIUM 4.2 mmol/L (3.5-5.1); SGOT/AST 17 U/L (15-37); SGPT/ALT 31 U/L (13-61); SODIUM 128 mmol/L (136-145); TOT PROT 7.5 g/dl (6.4-8.2)
[2018-03-03] MEDS ORDERED: SODIUM CHLORIDE 0.9% 500 ML INFUS.BAG IV ONE (02:26)
--- NOTE | 2018-03-03 11:25 | EKG ---
Test Reason : Blood Pressure : / mmHG Vent. Rate : 062 BPM Atrial Rate : 062 BPM P-R Int : 152 ms QRS Dur : 100 ms QT Int : 418 ms P-R-T Axes : 042 017 078 degrees QTc Int : 424 ms NORMAL SINUS RHYTHM INCOMPLETE RIGHT BUNDLE BRANCH BLOCK BORDERLINE ECG WHEN COMPARED WITH ECG OF 10-FEB-2018 23:50, INCOMPLETE RIGHT BUNDLE BRANCH BLOCK IS NOW PRESENT Confirmed by LIZETTE LEVI, JOJO ([id number]) on 03/03/2018 11:25:30 AM Referred By: Confirmed By:JOJO BAUER MD
[2018-03-03] MEDS: SERTRALINE HCL 50 MG TABLET (FP) PO SCH (13:52)
--- NOTE | 2018-03-03 14:06 | HP ---
DATE OF ADMISSION: 03/03/2018 HISTORY OF PRESENT ILLNESS: This is a 52-year-old male known to me for some time. He comes to the emergency room last night early this morning with complaints of difficulty swallowing. His sister brought him to the ER. In the ER he was found to have hyponatremia so he was admitted. The patient also has anxiety disorder on Inderal and Zoloft being followed by , psychiatrist. In the past he has had a Schatzki ring and was dilated twice. The last one was about 5 years ago. This morning the patient is comfortable, not in distress, anxiety persists. PHYSICAL EXAMINATION: Vital Signs: Blood pressure is 130/85, pulse 74, respirations 20, temperature 98. HEENT: Unremarkable. Neck: Supple, no JVD. Lungs: Clear. Heart: S1, S2 normal. No S3 or 4. Abdomen: Soft. Extremities: No edema. Neurologic: Grossly normal. LABORATORY REPORT: WBC 8.1, hemoglobin 16.5, platelets 277. Chemistries: 4128, potassium 4.2, chloride 94, BUN 11, creatinine 18. Random blood sugar 129. Amylase and lipase normal. Urinalysis is pending. IMPRESSION: 1. Hyponatremia. 2. Anxiety disorder. 3. Depression. PLAN: Currently placed on medication, IV normal saline. GI consult Dr. Zhong. Psychiatric consult . We will follow this patient. AIDEN MIRANDA M.D. [id number]
--- NOTE | 2018-03-03 15:32 | CON.GI ---
Consult Consult Specialty:: Gastroenterology Referred by:: Dr. 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 He describes having frequent dysphagia for solids leading to regurgitation, dry heaving and reluctance to eat. He intimates that it is related to the tremendous anxiety that he is experiencing. He has lost so much weight that his diabetic and cholesterol medications have been stopped. He has been under the care of Dr He and more recently Dr. Avery for extreme anxiety that has caused him to stop working. He has been weaned off Klonopin (and Remeron) at this family's insistence and is currently on Zoloft 150mg daily. His sister attributes the anxiety a relationship breaking up in the spring and a carry over of his father dying a year ago. Torin is prone to panic attacks and suffers with insomnia. He last had an EGD with Dr Kumar on 08/21/16 when a Schatzki ring was dilated. He previously had it dilated in 04/18. Both times fundic gland polyps were removed and a hiatal hernia was identified. No biopsies to exclude eosinophilic esophagitis were taken. Colonoscopy was last done on 08/28/13 when universal diverticulosis was found. He was hospitalized with diverticulitis in . In 2012 he had a lap choly and a liver biopsy which revealed a fatty liver with portal fibrosis. He used to drink beer regularly but has not had any alcohol since July. His sister Carolina helped in providing this history. - History Source History Provided By: Patient Limitations to Obtaining History: No Limitations - Past Medical History Cardio/Vascular: Yes: HTN, Hyperlipdemia Gastrointestinal: Yes: Diverticulitis, Diverticulosis, Gastritis, GERD, Hiatal Hernia, Other (Schatzki ring dilated and fundic gland polyps removed & . Umbilical hernia) Hepatobiliary: Yes: Cholecystitis, Other (ETOH and/or DIAS fatty liver with fibrosis on biopsy ) Renal/: Yes: BPH Psych: Yes: Anxiety Endocrine: Yes: Diabetes Mellitus, Other (low testosterone) - Past Surgical History Past Surgical History: Yes: Cholecystectomy, Colonoscopy, Upper Endoscopy - Alcohol/Substance Use Hx Alcohol Use: Yes (quit 07/20) History of Substance Use: reports: None - Smoking History Smoking history: Never smoked Have you smoked in the past 12 months: No Aproximately how many cigarettes per day: 0 - Social History Usual Living Arrangement: With Parent ADL: Independent 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 Place of : [facility] History of Recent Travel: No Home Medications - Allergies Allergies/Adverse Reactions: Allergies Allergy/AdvReac Type Severity Reaction Status Date / Time Latex, Natural Rubber Allergy Itching Verified 03/02/18 21:42 Shellfish Allergy Difficulty Verified 03/02/18 21:42 Breathing IVP DYE Allergy Hives Uncoded 03/02/18 21:42 - Home Medications Home Medications: Ambulatory Orders Propranolol HCl 40 mg PO DAILY 03/02/18 Sertraline HCl [Zoloft] 150 mg PO DAILY 03/02/18 Family Disease History - Family Disease History Family Disease History: CA: Brother (twin who is colon & pancreatic ca survivor ), Other: Mother (thyroid disease), Sister (thyroid disease) Review of Systems - Review of Systems Constitutional: reports: Loss of Appetite, Unintentional Wgt. Loss, Weakness Eyes: reports: No Symptoms HENT: reports: Difficult Swallowing Neck: reports: No Symptoms Cardiovascular: reports: Palpitations, Shortness of Breath Respiratory: reports: No Symptoms Gastrointestinal: reports: Constipation, Dysphagia, Vomiting Genitourinary: reports: No Symptoms Psychiatric: reports: Altered Sleep Pattern, Anxiety, Panic Physical Exam-GI Vital Signs: Vital Signs Temperature 97.0 F L 03/03/18 04:22 Pulse Rate 74 03/02/18 21:34 Respiratory Rate 19 03/03/18 04:22 Blood Pressure 120/80 03/03/18 04:22 O2 Sat by Pulse Oximetry (%) 99 03/02/18 21:34 CBC,CMP WBC 8.1 K/mm3 (4.0-10.0) 03/03/18 01:09 RBC 5.42 M/mm3 (4.00-5.60) 03/03/18 01:09 Hgb 16.5 GM/dL (11.7-16.9) 03/03/18 01:09 Hct 47.1 % (35.4-49) 03/03/18 01:09 MCV 86.9 fl (80-96) 03/03/18 01:09 MCH 30.5 pg (25.7-33.7) 03/03/18 01:09 MCHC 35.1 g/dl (32.0-35.9) 03/03/18 01:09 RDW 14.3 % (11.9-15.9) 03/03/18 01:09 Plt Count 277 K/MM3 (134-434) 03/03/18 01:09 MPV 6.9 fl (7.5-11.1) L 03/03/18 01:09 Absolute Neuts (auto) 4.1 K/mm3 (1.5-8.0) 03/03/18 01:09 Neutrophils % 50.7 % (42.8-82.8) D 03/03/18 01:09 Lymphocytes % 34.7 % (8-40) D 03/03/18 01:09 Monocytes % 12.9 % (3.8-10.2) H 03/03/18 01:09 Eosinophils % 1.1 % (0-4.5) 03/03/18 01:09 Basophils % 0.6 % (0-2.0) 03/03/18 01:09 Nucleated RBC % 0 % (0-0) 03/03/18 01:09 Sodium 128 mmol/L (136-145) L 03/03/18 01:09 Potassium 4.2 mmol/L (3.5-5.1) 03/03/18 01:09 Chloride 94 mmol/L (98-107) L 03/03/18 01:09 Carbon Dioxide 23 mmol/L (21-32) 03/03/18 01:09 Anion Gap 12 MMOL/L (8-16) 03/03/18 01:09 BUN 11 mg/dL (7-18) 03/03/18 01:09 Creatinine 0.8 mg/dL (0.55-1.3) 03/03/18 01:09 Creat Clearance w eGFR > 60 (>60) 03/03/18 01:09 Random Glucose 129 mg/dL (74-106) H 03/03/18 01:09 Calcium 9.0 mg/dL (8.5-10.1) 03/03/18 01:09 Total Bilirubin 0.9 mg/dL (0.2-1) 03/03/18 01:09 AST 17 U/L (15-37) 03/03/18 01:09 ALT 31 U/L (13-61) 03/03/18 01:09 Alkaline Phosphatase 69 U/L (45-117) 03/03/18 01:09 Creatine Kinase 89 IU/L (26-308) 03/03/18 01:09 Troponin I < 0.02 ng/ml (0.00-0.05) 03/03/18 01:09 Total Protein 7.5 g/dl (6.4-8.2) 03/03/18 01:09 Albumin 4.4 g/dl (3.4-5.0) 03/03/18 01:09 Lipase 146 U/L (73-393) 03/03/18 01:09 Current Medications Generic Name Dose Route Start Last Admin Trade Name Freq PRN Reason Stop Dose Admin Propranolol HCl 40 mg 03/03/18 22:00 Inderal - PO BID ULICES Sertraline HCl 150 mg 03/03/18 13:15 03/03/18 13:52 Zoloft - PO 150 mg DAILY ULICES Administration Constitutional: Yes: Anxious Eyes: Yes: Conjunctiva Clear HENT: Yes: Normocephalic Neck: Yes: Supple Cardiovascular: Yes: Regular Rate and Rhythm Respiratory: Yes: CTA Bilaterally Gastrointestinal Inspection: Yes: Hernia (nontender umbilical hernia), Scars ( healed laparoscopic incision) ...Auscultate: Yes: Normoactive Bowel Sounds ...Palpate: Yes: Soft, Other (nontender) ...Rectal Exam: Yes: Guaiac Negative (2+ soft prostate, brown guaiac negative stool) Edema: No Peripheral Pulses WNL: Yes Neurological: Yes: Alert, Oriented Psychiatric: Yes: Other (anxious) Labs: CBC, BMP 03/03/18 01:09 03/03/18 01:09 Problem List - Problems (1) Dysphagia Assessment/Plan: Although I believe that anxiety is the root cause of the weight loss and that may be causing globus a recurrence of a Schatzki ring and eosinophilic esophagitis need to be excluded. I will order an esophagram but have discussed EGD for biopsy and possible dilation of the esophagus with Torin and his sister. I have informed him of the potential for such complications as perforation and hemorrhage. He is on a position to sign an informed consent. EGD will be deferred until his electrolyte imbalance is corrected. Will give PPI in the interim. Code(s): R13.10 - DYSPHAGIA, UNSPECIFIED (2) Schatzki's ring of distal esophagus Code(s): K22.2 - ESOPHAGEAL OBSTRUCTION (3) Hyponatremia Code(s): E87.1 - HYPO-OSMOLALITY AND HYPONATREMIA (4) Weight loss Code(s): R63.4 - ABNORMAL WEIGHT LOSS (5) Hypertension Code(s): I10 - ESSENTIAL (PRIMARY) HYPERTENSION (6) Hyperlipemia Code(s): E78.5 - HYPERLIPIDEMIA, UNSPECIFIED (7) Constipation Code(s): K59.00 - CONSTIPATION, UNSPECIFIED (8) Acute stress reaction Code(s): F43.0 - ACUTE STRESS REACTION (9) Anxiety Code(s): F41.9 - ANXIETY DISORDER, UNSPECIFIED (10) Diabetes Code(s): E11.9 - TYPE 2 DIABETES MELLITUS WITHOUT COMPLICATIONS Qualifiers: Diabetes mellitus type: type 2 Diabetes mellitus complication status: without complication (11) Diverticulitis Code(s): K57.92 - DVTRCLI OF INTEST, PART UNSP, W/O PERF OR ABSCESS W/O BLEED Qualifiers: Diverticulitis site: large intestine (12) GERD with esophagitis Code(s): K21.0 - GASTRO-ESOPHAGEAL REFLUX DISEASE WITH ESOPHAGITIS (13) Fatty (change of) liver, not elsewhere classified Code(s): K76.0 - FATTY (CHANGE OF) LIVER, NOT ELSEWHERE CLASSIFIED (14) 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
[2018-03-03] MEDS: SODIUM CHLORIDE 1,000 ML IV SCH (17:55)
[2018-03-03] MEDS ORDERED: PT OWN MED DRAWER 7, Y5N ONE (21:09)
[2018-03-03] MEDS: PANTOPRAZOLE SODIUM 40 MG VIAL IVPUSH SCH (21:25)
[2018-03-03] MEDS ORDERED: ALPRAZolam 0.25 MG TABLET PO SCH (22:00)
--- NOTE | 2018-03-03 22:53 | PN ---
Mental Health Exam - Mental Status Exam Alert and Oriented to: Time, Place, Person Cognitive Function: Grossly Intact Patient Appearance: Well Groomed (REDDENNED FACE, ) Mood: Apathetic, Depressed, Fearful, Withdrawn, Anxious, Apprehensive Affect: Blunted Patient Behavior: Guarded, Cooperative Speech Pattern: Unclear (STAMMERING, SPEECH, ), Delayed Voice Loudness: Mildly Soft/Quiet Thought Process: Intact, Circumstantial, Disorganized Thought Disorder: Not Present Hallucinations: None, Denies Suicidal Ideation: None, Denies Homicidal Ideation: Denies Insight/Judgement: Poor Sleep: Poorly Appetite: Fair Muscle strength/Tone: Mild Hypertonicity Gait/Station: Deferred
--- NOTE | 2018-03-03 22:59 | PN ---
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 TREATED FORMERLY BY DR MURILLO, NOW SEEING DR GOMEZ IN [place] FOR 4 VISITS, HE WAS TAPERED OFF KLONOPIN, FINISHING ON . CLIENT HAS VISITED ER FREQUENTLY INCLUDING PASCUAL 2 TIMES 11/27 AND 12/31 WITH PANIC ATTACH.ALSO ER TO [facility]. IN PAST WAS ALSO ON REMERON. STOPPED DRINKING IN AUGUST 2017, THEN ANXIETY WORSENED. - Current Medication List Current Medications: Active Medications Alprazolam (Xanax -) 0.5 mg PO BID [facility] Last Admin: 03/03/18 21:25 Dose: 0.5 mg Sodium Chloride (Normal Saline -) 1,000 mls @ 125 mls/hr IV ASDIR [facility] Last Admin: 03/03/18 17:55 Dose: 125 mls/hr Pantoprazole Sodium (Protonix Iv) 40 mg IVPUSH BID [facility] Last Admin: 03/03/18 21:25 Dose: 40 mg Propranolol HCl (Inderal -) 40 mg PO BID [facility] Last Admin: 03/03/18 22:44 Dose: 40 mg Sertraline HCl (Zoloft -) 150 mg PO DAILY [facility] Last Admin: 03/03/18 13:52 Dose: 150 mg - Objective Vital Signs: Vital Signs Temperature 97.6 F 03/03/18 17:35 Pulse Rate 79 03/03/18 17:35 Respiratory Rate 20 03/03/18 17:35 Blood Pressure 141/73 03/03/18 17:35 O2 Sat by Pulse Oximetry (%) 100 03/03/18 17:44 Labs: CBC, BMP 03/03/18 01:09 03/03/18 01:09 Problem List - Problems (1) Anxiety as acute reaction to exceptional stress Assessment/Plan: CONTINUE WITH ZOLOFT 150MG PO DAILY PER DR GOMEZ. IN HOSPITAL MAY USE VISTARIL 50MG PO EVERY 6 HOURS NEEDED FOR ANXIETY. AVOID USE OF BENZODIAZEPINES EXPECT IN SEVERE ANXIETY, ATTEMPTING T5O TAPER OFF. MUST RETURN TO PSYCHIATRY CARE, WILL ALSO NEED A TALK THERAPIST OR GROUP THERAPY. AA IS RECOMMENDED TO MAINTAIN SOBERITY. Code(s): F41.1 - GENERALIZED ANXIETY DISORDER; F43.0 - ACUTE STRESS REACTION
[2018-03-04] MEDS ORDERED: hydrOXYzine HCL 25 MG TABLET (FP) PO ONE (00:21)
[2018-03-04] MEDS ORDERED: ALPRAZolam 0.25 MG TABLET PO ONE (02:45)
[2018-03-04] MEDS: SODIUM CHLORIDE 1,000 ML IV SCH ×2 (02:54→21:18)
[2018-03-04 08:00] LABS: INR 1.03 (0.83-1.09); PROTHROMBIN TIME (PATIENT) 12.2 SEC (9.7-13.0)
[2018-03-04 08:54] LABS: ALBUMIN 3.5 g/dl (3.4-5.0); ALK PHOS 54 U/L (45-117); AMYLASE 24 U/L (25-115); ANION GAP 7 MMOL/L (8-16); BILIRUBIN,TOTAL 0.7 mg/dL (0.2-1); BLOOD UREA NITROGEN 7 mg/dL (7-18); CALCIUM 8.7 mg/dL (8.5-10.1); CHLORIDE 102 mmol/L (98-107); CO2 26 mmol/L (21-32); CREATININE 0.8 mg/dL (0.55-1.3); GLUCOSE,RANDOM 101 mg/dL (74-106); POTASSIUM 4.4 mmol/L (3.5-5.1); SGOT/AST 13 U/L (15-37); SGPT/ALT 27 U/L (13-61); SODIUM 135 mmol/L (136-145)
--- NOTE | 2018-03-04 09:21 | PN ---
Progress Note, Physician Chief Complaint: feels better History of Present Illness: Dr Valdes GI consult and SHIRA Layton psyc consult appreciated - Current Medication List Current Medications: Active Medications Alprazolam (Xanax -) 0.5 mg PO BID [facility] Last Admin: 03/03/18 21:25 Dose: 0.5 mg Sodium Chloride (Normal Saline -) 1,000 mls @ 125 mls/hr IV ASDIR [facility] Last Admin: 03/04/18 02:54 Dose: 125 mls/hr Pantoprazole Sodium (Protonix Iv) 40 mg IVPUSH BID [facility] Last Admin: 03/03/18 21:25 Dose: 40 mg Propranolol HCl (Inderal -) 40 mg PO BID [facility] Last Admin: 03/03/18 22:44 Dose: 40 mg Sertraline HCl (Zoloft -) 150 mg PO DAILY [facility] Last Admin: 03/03/18 13:52 Dose: 150 mg - Objective Vital Signs: Vital Signs Temperature 98.7 F 03/04/18 06:00 Pulse Rate 744 H 03/04/18 06:00 Respiratory Rate 20 03/04/18 06:00 Blood Pressure 128/64 03/04/18 06:00 O2 Sat by Pulse Oximetry (%) 100 03/03/18 21:00 Constitutional: Yes: No Distress, Calm Eyes: Yes: WNL HENT: Yes: WNL Neck: Yes: WNL Cardiovascular: Yes: WNL Respiratory: Yes: WNL Gastrointestinal: Yes: WNL ...Rectal Exam: Yes: WNL Genitourinary: Yes: WNL Breast(s): Yes: WNL Musculoskeletal: Yes: WNL Neurological: Yes: Alert Psychiatric: Yes: Alert Labs: CBC, BMP 03/03/18 01:09 03/04/18 06:50 INR, PTT INR 1.03 (0.83-1.09) 03/04/18 06:50 Assessment/Plan Hyponatremia improved GI work ups in progress DC xanax Start Vistaril
[2018-03-04] MEDS ORDERED: PT OWN MED DRAWER 7, Y5N ONE ×2 (10:45→21:16)
[2018-03-04] MEDS: PANTOPRAZOLE SODIUM 40 MG VIAL IVPUSH SCH ×2 (10:56→21:18)
[2018-03-04] MEDS: SERTRALINE HCL 50 MG TABLET (FP) PO SCH (10:56)
--- NOTE | 2018-03-04 11:48 | PN ---
Progress Note (short form) - Note Progress Note: GI NOte: Esophagram reveals distal esophageal stricture. Sonogram is normal. I have scheduled and EGD and dilation for 03/06/17. Problem List - Problems (1) Dysphagia Code(s): R13.10 - DYSPHAGIA, UNSPECIFIED (2) Schatzki's ring of distal esophagus Code(s): K22.2 - ESOPHAGEAL OBSTRUCTION (3) Hyponatremia Code(s): E87.1 - HYPO-OSMOLALITY AND HYPONATREMIA (4) Weight loss Code(s): R63.4 - ABNORMAL WEIGHT LOSS (5) Hypertension Code(s): I10 - ESSENTIAL (PRIMARY) HYPERTENSION (6) Hyperlipemia Code(s): E78.5 - HYPERLIPIDEMIA, UNSPECIFIED (7) Constipation Code(s): K59.00 - CONSTIPATION, UNSPECIFIED (8) Acute stress reaction Code(s): F43.0 - ACUTE STRESS REACTION (9) Anxiety Code(s): F41.9 - ANXIETY DISORDER, UNSPECIFIED (10) Diabetes Code(s): E11.9 - TYPE 2 DIABETES MELLITUS WITHOUT COMPLICATIONS Qualifiers: Diabetes mellitus type: type 2 Diabetes mellitus complication status: without complication (11) Diverticulitis Code(s): K57.92 - DVTRCLI OF INTEST, PART UNSP, W/O PERF OR ABSCESS W/O BLEED Qualifiers: Diverticulitis site: large intestine (12) GERD with esophagitis Code(s): K21.0 - GASTRO-ESOPHAGEAL REFLUX DISEASE WITH ESOPHAGITIS (13) Fatty (change of) liver, not elsewhere classified Code(s): K76.0 - FATTY (CHANGE OF) LIVER, NOT ELSEWHERE CLASSIFIED (14) 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
[2018-03-04] MEDS: hydrOXYzine PAMOATE 50 MG CAPSULE (FP) PO SCH ×3 (14:34→21:19)
[2018-03-04] MEDS: ALPRAZolam 0.25 MG TABLET PO PRN (23:14)
[2018-03-05] MEDS: hydrOXYzine PAMOATE 50 MG CAPSULE (FP) PO SCH ×3 (06:18→21:26)
[2018-03-05 07:12] LABS: CARCINOEMBRYONIC ANTIGEN 3.4 ng/mL (0.0-4.7)
[2018-03-05] MEDS ORDERED: PT OWN MED DRAWER 7, Y5N ONE ×3 (10:29→21:01)
[2018-03-05] MEDS: SERTRALINE HCL 50 MG TABLET (FP) PO SCH (10:43)
[2018-03-05] MEDS: PANTOPRAZOLE SODIUM 40 MG VIAL IVPUSH SCH ×2 (10:43→21:26)
--- NOTE | 2018-03-05 11:24 | PN ---
Progress Note, Physician Chief Complaint: Still has multiple complaints History of Present Illness: Scheduled for esophageal dilatations by Dr Zhong - Current Medication List Current Medications: Active Medications Alprazolam (Xanax -) 0.5 mg PO Q12H PRN PRN Reason: ANXIETY Last Admin: 03/04/18 23:14 Dose: 0.5 mg Hydroxyzine Pamoate (Vistaril -) 50 mg PO TID [facility] Last Admin: 03/05/18 06:18 Dose: Not Given Sodium Chloride (Normal Saline -) 1,000 mls @ 125 mls/hr IV ASDIR [facility] Last Admin: 03/04/18 21:18 Dose: 125 mls/hr Pantoprazole Sodium (Protonix Iv) 40 mg IVPUSH BID [facility] Last Admin: 03/05/18 10:43 Dose: 40 mg Propranolol HCl (Inderal -) 40 mg PO BID [facility] Last Admin: 03/05/18 10:43 Dose: 40 mg Sertraline HCl (Zoloft -) 150 mg PO DAILY [facility] Last Admin: 03/05/18 10:43 Dose: 150 mg - Objective Vital Signs: Vital Signs Temperature 97.4 F L 03/05/18 06:00 Pulse Rate 68 03/05/18 06:00 Respiratory Rate 20 03/04/18 22:11 Blood Pressure 138/76 03/05/18 06:00 O2 Sat by Pulse Oximetry (%) 99 03/04/18 21:00 Constitutional: Yes: Anxious Eyes: Yes: WNL HENT: Yes: WNL Neck: Yes: WNL Cardiovascular: Yes: WNL Respiratory: Yes: WNL Gastrointestinal: Yes: Normal Bowel Sounds ...Rectal Exam: Yes: Deferred Neurological: Yes: Alert Labs: CBC, BMP 03/03/18 01:09 03/04/18 06:50 INR, PTT INR 1.03 (0.83-1.09) 03/04/18 06:50 Assessment/Plan Cleared for the procedure in AM
[2018-03-05] MEDS: SODIUM CHLORIDE 1,000 ML IV SCH ×3 (13:43→21:25)
[2018-03-05] MEDS: ALPRAZolam 0.25 MG TABLET PO PRN (23:32)
[2018-03-06] MEDS: SODIUM CHLORIDE 1,000 ML IV SCH ×2 (06:16→15:52)
[2018-03-06] MEDS: hydrOXYzine PAMOATE 50 MG CAPSULE (FP) PO SCH ×3 (06:16→15:01)
[2018-03-06 07:23] LABS: HEMATOCRIT 42.5 % (35.4-49); HEMOGLOBIN 14.4 GM/dL (11.7-16.9); MCHC 33.8 g/dl (32.0-35.9); MEAN CELL VOLUME 88.8 fl (80-96); MEAN PLT VOLUME 7.1 fl (7.5-11.1); PLATELET COUNT 190 K/MM3 (134-434); RBC 4.78 M/mm3 (4.00-5.60); WHITE BLOOD COUNT 5.3 K/mm3 (4.0-10.0)
[2018-03-06 07:47] LABS: ALBUMIN 3.6 g/dl (3.4-5.0); ALK PHOS 56 U/L (45-117); ANION GAP 6 MMOL/L (8-16); BILIRUBIN,TOTAL 0.6 mg/dL (0.2-1); BLOOD UREA NITROGEN 8 mg/dL (7-18); CALCIUM 8.3 mg/dL (8.5-10.1); CHLORIDE 104 mmol/L (98-107); CO2 27 mmol/L (21-32); CREATININE 0.8 mg/dL (0.55-1.3); GLUCOSE,RANDOM 99 mg/dL (74-106); POTASSIUM 4.1 mmol/L (3.5-5.1); SGOT/AST 14 U/L (15-37); SGPT/ALT 25 U/L (13-61); SODIUM 136 mmol/L (136-145); TOT PROT 6.1 g/dl (6.4-8.2)
--- NOTE | 2018-03-06 09:15 | PN ---
Progress Note (short form) - Note Progress Note: GI Procedure NOte: Please see scanned EGD report. Distal esophageal spasms vs stricture dilated. Candidal esophagitis and gastritis as well as gastric polyps were found. Given the twin brother's h/o pancreatic and colon cancer a CT scan will be obtained. Trial of solids. Await path to exclude eosinophilic esophagitis. Problem List - Problems (1) Dysphagia Code(s): R13.10 - DYSPHAGIA, UNSPECIFIED (2) Schatzki's ring of distal esophagus Code(s): K22.2 - ESOPHAGEAL OBSTRUCTION (3) Hyponatremia Code(s): E87.1 - HYPO-OSMOLALITY AND HYPONATREMIA (4) Weight loss Code(s): R63.4 - ABNORMAL WEIGHT LOSS (5) Hypertension Code(s): I10 - ESSENTIAL (PRIMARY) HYPERTENSION (6) Hyperlipemia Code(s): E78.5 - HYPERLIPIDEMIA, UNSPECIFIED (7) Constipation Code(s): K59.00 - CONSTIPATION, UNSPECIFIED (8) Acute stress reaction Code(s): F43.0 - ACUTE STRESS REACTION (9) Anxiety Code(s): F41.9 - ANXIETY DISORDER, UNSPECIFIED (10) Diabetes Code(s): E11.9 - TYPE 2 DIABETES MELLITUS WITHOUT COMPLICATIONS Qualifiers: Diabetes mellitus type: type 2 Diabetes mellitus complication status: without complication (11) Diverticulitis Code(s): K57.92 - DVTRCLI OF INTEST, PART UNSP, W/O PERF OR ABSCESS W/O BLEED Qualifiers: Diverticulitis site: large intestine (12) GERD with esophagitis Code(s): K21.0 - GASTRO-ESOPHAGEAL REFLUX DISEASE WITH ESOPHAGITIS (13) Fatty (change of) liver, not elsewhere classified Code(s): K76.0 - FATTY (CHANGE OF) LIVER, NOT ELSEWHERE CLASSIFIED (14) 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
--- NOTE | 2018-03-06 09:45 | PN ---
Progress Note, Physician Chief Complaint: S/P esophageal dilatation Tolerated the procedure well - Current Medication List Current Medications: Active Medications Alprazolam (Xanax -) 0.5 mg PO Q12H PRN PRN Reason: ANXIETY Last Admin: 03/05/18 23:32 Dose: 0.5 mg Hydroxyzine Pamoate (Vistaril -) 50 mg PO TID [facility] Last Admin: 03/06/18 06:16 Dose: Not Given Sodium Chloride (Normal Saline -) 1,000 mls @ 125 mls/hr IV ASDIR [facility] Last Admin: 03/06/18 06:16 Dose: 125 mls/hr Pantoprazole Sodium (Protonix -) 40 mg PO BID [facility] Propranolol HCl (Inderal -) 40 mg PO BID [facility] Last Admin: 03/05/18 21:25 Dose: 40 mg Sertraline HCl (Zoloft -) 150 mg PO DAILY [facility] Last Admin: 03/05/18 10:43 Dose: 150 mg - Objective Vital Signs: Vital Signs Temperature 0.5 F L 03/06/18 08:31 Pulse Rate 54 L 03/06/18 09:16 Respiratory Rate 16 03/06/18 09:16 Blood Pressure 107/56 L 03/06/18 09:16 O2 Sat by Pulse Oximetry (%) 100 03/06/18 09:16 Constitutional: Yes: Calm Eyes: Yes: WNL HENT: Yes: WNL Neck: Yes: WNL Cardiovascular: Yes: WNL Respiratory: Yes: WNL Gastrointestinal: Yes: WNL ...Rectal Exam: Yes: Deferred Edema: No Neurological: Yes: Alert Psychiatric: Yes: Alert Labs: CBC, BMP 03/06/18 06:30 03/06/18 06:30 INR, PTT INR 1.03 (0.83-1.09) 03/04/18 06:50 Assessment/Plan Start back on diet as per GI
[2018-03-06] MEDS ORDERED: PANTOPRAZOLE 40 MG TABLET (FP) PO SCH (10:00)
[2018-03-06] MEDS ORDERED: PT OWN MED DRAWER 7, Y5N ONE (10:14)
[2018-03-06] MEDS: SERTRALINE HCL 50 MG TABLET (FP) PO SCH (10:17)
--- NOTE | 2018-03-06 11:52 | PN ---
Progress Note (short form) - Note Progress Note: GI Addendum: Given is weight and twin brother's h/o colon cancer I have advised a repeat colonoscopy as his last study was with Dr Kumar and was done 5 years ago. I have informed him of the potential for such complications as perforation and hemorrhage and he is in a position to make an informed consent. He wants to discuss it with his sister before deciding. Problem List - Problems (1) Dysphagia Code(s): R13.10 - DYSPHAGIA, UNSPECIFIED (2) Schatzki's ring of distal esophagus Code(s): K22.2 - ESOPHAGEAL OBSTRUCTION (3) Hyponatremia Code(s): E87.1 - HYPO-OSMOLALITY AND HYPONATREMIA (4) Weight loss Code(s): R63.4 - ABNORMAL WEIGHT LOSS (5) Hypertension Code(s): I10 - ESSENTIAL (PRIMARY) HYPERTENSION (6) Hyperlipemia Code(s): E78.5 - HYPERLIPIDEMIA, UNSPECIFIED (7) Constipation Code(s): K59.00 - CONSTIPATION, UNSPECIFIED (8) Acute stress reaction Code(s): F43.0 - ACUTE STRESS REACTION (9) Anxiety Code(s): F41.9 - ANXIETY DISORDER, UNSPECIFIED (10) Diabetes Code(s): E11.9 - TYPE 2 DIABETES MELLITUS WITHOUT COMPLICATIONS Qualifiers: Diabetes mellitus type: type 2 Diabetes mellitus complication status: without complication (11) Diverticulitis Code(s): K57.92 - DVTRCLI OF INTEST, PART UNSP, W/O PERF OR ABSCESS W/O BLEED Qualifiers: Diverticulitis site: large intestine (12) GERD with esophagitis Code(s): K21.0 - GASTRO-ESOPHAGEAL REFLUX DISEASE WITH ESOPHAGITIS (13) Fatty (change of) liver, not elsewhere classified Code(s): K76.0 - FATTY (CHANGE OF) LIVER, NOT ELSEWHERE CLASSIFIED (14) 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
[2018-03-06 13:57] VITALS: BP 135/87; PULSE 67; TEMP 97.8
[2018-03-07 00:51] VITALS: BMI 25.9
--- NOTE | 2018-03-07 15:06 | PATH ---
Cytology Non-Gynecological Report Patient Name: TROY PEREZ Med. Rec. #: [id number] /Age/Gender: 1965 (Age: 52) / M Account: [id number] Location: [address] [place] [address]/[facility] Taken: 03/06/2018 Received: 03/06/2018 Reported: 03/07/2018 Physicians: Lulu Karimi M.D. Specimen(s) Received DISTAL MID ESOPHAGEAL BRUSHING Clinical History Rule out lopez esophagitis Final Diagnosis DISTAL AND MID ESOPHAGEAL BRUSHING FOR CYTOLOGY: SATISFACTORY FOR EVALUATION. SQUAMOUS CELLS WITH REACTIVE CELLULAR CHANGES. LOPEZ SPECIES. SCATTERED SQUAMOUS CELLS WITH REACTIVE CELLULAR CHANGES NOTED. NEUTROPHILS PRESENT. FUNGAL FORMS MORPHOLOGICALLY CONSISTENT WITH LOPEZ SPECIES ARE HIGHLIGHTED BY PAS SPECIAL STAIN. Electronically Signed Esther Miranda M.D. Gross Description Received 1 slide and brush in approximately 10 cc of 95% alcohol. Slide Pap stained. One cellblock prepared.
--- NOTE | 2018-03-07 15:52 | PATH ---
Surgical Pathology Report Patient Name: TROY PEREZ [facility]. Rec. #: [id number] /Age/Gender: 1965 (Age: 52) / M Account: [id number] Location: [address] [place] [address] Taken: 03/06/2018 Received: 03/06/2018 Reported: 03/07/2018 Physicians: Lulu Karimi M.D. Specimen(s) Received A: BX 2ND PORTION DUODENUM AND DUODENAL BULB B: BX ANTRUM C: BX BODY POLYPS D: BX MID ESOPHAGUS E: BX DISTAL ESOPHAGUS Clinical History Dysphagia, esophageal stricture Postoperative diagnosis: Monica esophagitis, esophageal stricture, gastric body polyps Final Diagnosis A. SECOND PORTION DUODENUM AND DUODENUM BULB, BIOPSY: DUODENUM MUCOSA WITH NO DIAGNOSTIC ABNORMALITIES. NO HISTOLOGIC EVIDENCE OF CELIAC DISEASE. B. ANTRUM, BIOPSY: GASTRIC MUCOSA WITH MILD CHRONIC GASTRITIS. IMMUNOSTAIN FOR H. PYLORI IS NEGATIVE. NEGATIVE FOR INTESTINAL METAPLASIA. C. BODY POLYPS, BIOPSY: FUNDIC GLAND POLYP, FRAGMENTS. IMMUNOSTAIN FOR H. PYLORI IS NEGATIVE. NEGATIVE FOR INTESTINAL METAPLASIA. D. MID ESOPHAGUS, BIOPSY: SQUAMOUS EPITHELIUM WITH BASAL LAYER HYPERPLASIA, ELONGATION OF LAMINA PROPRIA PAPILLAE WITH VASCULAR CONGESTION, SUGGESTIVE OF REFLUX ESOPHAGITIS. NO HISTOLOGIC EVIDENCE OF EOSINOPHILIC ESOPHAGITIS. PAS STAIN FOR FUNGAL HYPHAE IS NEGATIVE. E. DISTAL ESOPHAGUS, BIOPSY: SQUAMOUS EPITHELIUM WITH CHANGES CONSISTENT REFLUX ESOPHAGITIS. NO HISTOLOGIC EVIDENCE OF EOSINOPHILIC ESOPHAGITIS. PAS STAIN FOR FUNGAL HYPHAE IS NEGATIVE. SEPARATE ONE SEPARATE BODY TYPE GASTRIC MUCOSA WITH DILATED GLANDS. CLINICAL CORRELATION IS RECOMMENDED. Electronically Signed Juju Peck M.D. Gross Description A. Received in formalin, labeled "biopsy second portion of duodenum and duodenal bulb" are 3 garnica, irregular portions of soft tissue ranging from 0.4-0.5 cm. in greatest dimension. The specimens are submitted in toto in one cassette. B. Received in formalin, labeled "biopsy antrum" are 2 garnica, irregular portions of soft tissue measuring 0.3 and 0.7 cm. in greatest dimension. The specimens are submitted in toto in one cassette. C. Received in formalin, labeled "gastric body polyps" are 3 garnica, irregular portions of soft tissue ranging from 0.3-0.4 cm. in greatest dimension. The specimens are submitted in toto in one cassette. D. Received in formalin, labeled "biopsy midesophagus" are 2 garnica, irregular portions of soft tissue measuring 0.4 and 0.6 cm. in greatest dimension. The specimens are submitted in toto in one cassette. E. Received in formalin, labeled "biopsy distal esophagus" are 5 garnica, irregular portions of soft tissue ranging from 0.1-0.7 cm. in greatest dimension. The specimens are submitted in toto in one cassette. 03/06/2018 [facility]03/06/2018
== END 2018-03-06 19:24 | disposition home or self-care (01) | DRG 641 ==
LOC: JER 21:29 → JERBED 03-03 05:11 → J6S 03-03 16:14
PROVIDERS: ADMIT Internal Medicine; ATTEND Internal Medicine
PROC: 0DD68ZX Extraction of Stomach, Via Natural or Artificial Opening Endoscopic, Diagnostic (ICD-10-PCS; 2018-03-06)
PROC: 0DB68ZX Excision of Stomach, Via Natural or Artificial Opening Endoscopic, Diagnostic (ICD-10-PCS; principal; 2018-03-06 08:00)
DX: E87.1 Hypo-osmolality and hyponatremia (principal); B37.81 Candidal esophagitis; D13.1 Benign neoplasm of stomach; K29.70 Gastritis, unspecified, without bleeding; K21.0 Gastro-esophageal reflux disease with esophagitis; E11.9 Type 2 diabetes mellitus without complications; I10 Essential (primary) hypertension; F41.9 Anxiety disorder, unspecified; F32.9 Major depressive disorder, single episode, unspecified; E78.5 Hyperlipidemia, unspecified; K59.00 Constipation, unspecified; K74.0 Hepatic fibrosis; F43.0 Acute stress reaction; F41.1 Generalized anxiety disorder; K57.30 Diverticulosis of large intestine without perforation or abscess without bleeding; Z80.0 Family history of malignant neoplasm of digestive organs; R13.10 Dysphagia, unspecified
CPT/HCPCS: 36415; 71046-TC-FY; 74220-TC-FY; 74240-TC-FY; 76705-TC; 80053; 82105; 82150; 82378; 82550; 83036; 83690; 84436; 84443; 84484; 85025; 85027; 85610; 86140; 86301; 88104; 88305-TC; 93005; 93010; 99284-25; J7030

== ENCOUNTER 2023-08-06 10:52 | Inpatient (IN) | payer OTHER ==
[2023-08-06] MEDS ORDERED: MAG HYDROX/AL HYDROX/SIMETH 30 ML UNIT-DOSE CUP ONE (11:35)
[2023-08-06] MEDS ORDERED: FAMOTIDINE 20 MG/50 ML IVPB 20 MG/50 ML MG IVPB ONE (11:36)
[2023-08-06] MEDS ORDERED: ONDANSETRON 4 MG/2 ML VIAL ONE (11:36)
[2023-08-06] MEDS: ONDANSETRON 4 MG/2 ML VIAL IVPUSH ONE (11:41)
[2023-08-06] MEDS: FAMOTIDINE 20 MG/50 ML IVPB 20 MG/50 ML MG IVPB ONE (11:41)
[2023-08-06] MEDS: MAG HYDROX/AL HYDROX/SIMETH -MYLANTA- ORAL SUSPENSION PO ONE (11:41)
[2023-08-06 11:44] LABS: BASO % 0.1 % (0-2.0); HEMATOCRIT 40.9 % (35.4-49); HEMOGLOBIN 14.5 GM/dL (11.7-16.9); LYMPH % 7.5 % (8-40); MCH 30.5 pg (25.7-33.7); MCHC 35.4 g/dl (32.0-35.9); MEAN CELL VOLUME 86.2 fl (80-96); MEAN PLT VOLUME 6.6 fl (7.5-11.1); MONO % 5.5 % (3.8-10.2); NEUT % 86.9 % (42.8-82.8); PLATELET COUNT 222 10^3/uL (134-434); RBC 4.74 M/mm3 (4.00-5.60); WHITE BLOOD COUNT 10.1 K/mm3 (4.0-10.0)
[2023-08-06 11:52] VITALS: RESP 18; BMI 30.4
[2023-08-06 11:56] LABS: INR 0.99 (0.83-1.09); PROTHROMBIN TIME (PATIENT) 11.2 SEC (9.7-13.0)
[2023-08-06 11:58] LABS: CHLORIDE 85 mmol/L (98-107); POTASSIUM 4.4 mmol/L (3.5-5.1)
[2023-08-06 12:01] LABS: ALBUMIN 4.2 g/dl (3.4-5.0); CALCIUM 8.9 mg/dL (8.5-10.1); CO2 21 mmol/L (21-32); GLUCOSE,RANDOM 250 mg/dL (74-106)
[2023-08-06 12:02] LABS: MAGNESIUM 1.8 mg/dL (1.8-2.4)
[2023-08-06 12:04] LABS: CREATININE 0.8 mg/dL (0.55-1.3); SGOT/AST 21 U/L (15-37)
[2023-08-06 12:05] LABS: BILIRUBIN,TOTAL 1.2 mg/dL (0.2-1)
[2023-08-06 12:06] LABS: TOT PROT 7.5 g/dl (6.4-8.2)
[2023-08-06 12:07] LABS: ALK PHOS 68 U/L (45-117)
[2023-08-06 12:12] LABS: SGPT/ALT 20 U/L (13-61)
[2023-08-06 12:14] LABS: ANION GAP 12 mmol/L (4-13); SODIUM 118 mmol/L (136-145)
[2023-08-06] MEDS: SODIUM CHLORIDE 0.9% 500 ML INFUS.BAG IV ONE (12:40)
[2023-08-06] MEDS: TRIMETHOBENZAMIDE HCL 200MG/2ML INJ IM ONE (12:52)
[2023-08-06] MEDS ORDERED: PANTOPRAZOLE 40 MG TABLET PO ONE (14:37)
[2023-08-06] MEDS: PANTOPRAZOLE 40 MG TABLET PO SCH (14:41)
[2023-08-06 14:56] LABS: URINE APPEARANCE CLEAR; URINE BILIRUBIN NEGATIVE (NEGATIVE); URINE COLOR YELLOW; URINE GLUCOSE (UA) 2+ (NEGATIVE); URINE KETONE 2+ (NEGATIVE); URINE LEUK ESTERASE NEGATIVE (NEGATIVE); URINE NITRITE NEGATIVE (NEGATIVE); URINE PROTEIN NEGATIVE (NEGATIVE); URINE UROBILINOGEN 0.2 mg/dL (0.2-1.0)
[2023-08-06 18:47] LABS: CHLORIDE 87 mmol/L (98-107); POTASSIUM 4.5 mmol/L (3.5-5.1)
[2023-08-06 18:48] LABS: CALCIUM 8.2 mg/dL (8.5-10.1)
[2023-08-06 18:49] LABS: ALBUMIN 3.7 g/dl (3.4-5.0); BLOOD UREA NITROGEN 5.7 mg/dL (7-18); CO2 23 mmol/L (21-32); GLUCOSE,RANDOM 194 mg/dL (74-106)
[2023-08-06 18:52] LABS: CREATININE 0.7 mg/dL (0.55-1.3); SGOT/AST 15 U/L (15-37); SGPT/ALT 17 U/L (13-61)
[2023-08-06 18:54] LABS: BILIRUBIN,TOTAL 0.9 mg/dL (0.2-1); TOT PROT 6.9 g/dl (6.4-8.2)
[2023-08-06 18:55] LABS: ALK PHOS 60 U/L (45-117)
[2023-08-06 18:58] LABS: ANION GAP 9 mmol/L (4-13); SODIUM 119 mmol/L (136-145)
[2023-08-06 19:00] LABS: ARTERIAL BLD GAS O2 SATURATION 97.1 % (95-98); ARTERIAL BLOOD GAS PO2 88.7 mmHg (80-100); ARTERIAL BLOOD GAS pH 7.439 (7.350-7.450)
[2023-08-06 19:03] LABS: ALLENS TEST POSITIVE
[2023-08-06] MEDS: PIPERACILLIN/TAZOB 3.375 GM 3.375 GM in DEXTROSE 5%-WATER - 50 ML IVPB SCH (19:46)
[2023-08-06] MEDS: INSULIN ASPART SLIDING SCALE (NOVOLOG) 1 VIAL SQ SCH (19:46)
[2023-08-06] MEDS: INSULIN (LEVEMIR) 100 UNITS/ML UNITS SQ SCH (21:29)
[2023-08-06] MEDS: MELATONIN 5 MG TABLETS PO ONE (23:54)
[2023-08-07] MEDS: OLANZapine 2.5 MG TABLET PO SCH (10:15)
[2023-08-07] MEDS: SERTRALINE HCL 50 MG TABLET (FP) PO SCH (10:15)
[2023-08-07 11:12] LABS: BASO % 0.8 % (0-2.0); EOS % 1.7 % (0-4.5); HEMATOCRIT 39.3 % (35.4-49); HEMOGLOBIN 13.7 GM/dL (11.7-16.9); MCH 30.6 pg (25.7-33.7); MEAN CELL VOLUME 87.4 fl (80-96); MEAN PLT VOLUME 6.9 fl (7.5-11.1); MONO % 8.7 % (3.8-10.2); NEUT % 67.8 % (42.8-82.8); PLATELET COUNT 249 10^3/uL (134-434); RBC 4.49 M/mm3 (4.00-5.60); RDW 14.4 % (11.9-15.9); WHITE BLOOD COUNT 6.9 K/mm3 (4.0-10.0)
[2023-08-07 11:43] LABS: POTASSIUM 4.4 mmol/L (3.5-5.1)
[2023-08-07 11:47] LABS: CALCIUM 8.5 mg/dL (8.5-10.1)
[2023-08-07 11:48] LABS: ALBUMIN 3.7 g/dl (3.4-5.0); BLOOD UREA NITROGEN 9.1 mg/dL (7-18); MAGNESIUM 2.5 mg/dL (1.8-2.4)
[2023-08-07 11:50] LABS: CREATININE 0.9 mg/dL (0.55-1.3); PHOSPHOROUS 2.2 mg/dL (2.5-4.9)
[2023-08-07 11:51] LABS: BILIRUBIN,TOTAL 0.6 mg/dL (0.2-1)
[2023-08-07 11:53] LABS: CHOLESTEROL 181 mg/dL (50-200)
[2023-08-07 11:54] LABS: LDL CHOLESTEROL (ONLY SJRH) 107 mg/dL (5-100)
[2023-08-07 11:55] LABS: HDL CHOLESTEROL 46 mg/dL (40-60)
[2023-08-07] MEDS: SODIUM CHLORIDE 0.45% 1,000 ML IV SCH (15:17)
[2023-08-07] MEDS: MELATONIN 5 MG TABLETS PO PRN (23:58)
[2023-08-08 09:20] LABS: POTASSIUM 4.3 mmol/L (3.5-5.1)
[2023-08-08 09:23] LABS: CALCIUM 8.3 mg/dL (8.5-10.1)
[2023-08-08 09:24] LABS: BLOOD UREA NITROGEN 12.4 mg/dL (7-18)
[2023-08-08 09:27] LABS: CREATININE 0.9 mg/dL (0.55-1.3)
[2023-08-08] MEDS ORDERED: PATIENT'S OWN MEDICATION (NON-FORMULARY) (Icosapent Ethyl [Vascepa] 1 GM Capsule) PO SCH (11:00)
[2023-08-08] MEDS: POLYETHYLENE GLYCOL (HEALTHYLAX) 3350 17 GM PACKET PO SCH (11:39)
[2023-08-08] MEDS: ONDANSETRON 4 MG/2 ML VIAL IVPUSH PRN (12:42)
[2023-08-08] MEDS: SODIUM CHLORIDE 1,000 ML IV STA (14:10)
[2023-08-08] MEDS ORDERED: ANAPHYLAXIS KIT ONE (14:19)
[2023-08-08] MEDS: EPINEPHrine/PF 1 MG/1 ML (1:1,000) AMPULE IM ONE ×2 (14:34→14:55)
[2023-08-08] MEDS: methylPREDNISolone NA SUCC 125 MG/2 ML VIAL IVPUSH ONE ×2 (14:40→14:56)
[2023-08-08] MEDS: methylPREDNISolone NA SUCC 40 MG/1 ML VIAL IVPUSH SCH (14:49)
[2023-08-08] MEDS: TAMSULOSIN HCL 0.4 MG CAP PO SCH (21:47)
[2023-08-09 08:47] LABS: POTASSIUM 4.2 mmol/L (3.5-5.1)
[2023-08-09 08:48] LABS: CALCIUM 8.7 mg/dL (8.5-10.1)
[2023-08-09 08:49] LABS: BLOOD UREA NITROGEN 14.7 mg/dL (7-18)
[2023-08-09] MEDS ORDERED: PATIENT'S OWN MEDICATION (NON-FORMULARY) (Telmisartan [Telmisartan] 40 MG Tablet) PO SCH (10:00)
[2023-08-09 15:16] VITALS: BP 101/68; PULSE 102; TEMP 98.3
[2023-08-09] MEDS ORDERED: OLANZapine 2.5 MG TABLET PO SCH (22:00)
== END 2023-08-09 16:04 | disposition home or self-care (01) | DRG 640 ==
LOC: JER 10:52 → JERBED 13:21 → J5S 15:24
PROVIDERS: ADMIT Internal Medicine; ATTEND Internal Medicine
DX: E87.1 Hypo-osmolality and hyponatremia (principal); J18.9 Pneumonia, unspecified organism; J98.11 Atelectasis; E11.9 Type 2 diabetes mellitus without complications; I10 Essential (primary) hypertension; E66.9 Obesity, unspecified; Z68.30 Body mass index [BMI] 30.0-30.9, adult; E78.5 Hyperlipidemia, unspecified; K21.00 Gastro-esophageal reflux disease with esophagitis, without bleeding
CPT/HCPCS: 36415; 36600; 70450-TC; 71045-TC-FY; 74176-TC; 80048; 80053; 80061; 81003; 82010; 82570; 82803; 82962; 83690; 83735; 83930; 83935; 84100; 84300; 84436; 84443; 84484; 84540; 85025; 85610; 85730; 86850; 86900; 86901; 87086; 87899; 93005; 93010; 93306-TC; 94010; 97116-GP; 97161-GP; 99285-25

== ENCOUNTER 2023-08-15 21:09 | Inpatient (IN) | payer OTHER ==
[2023-08-15 22:31] LABS: BASO % 0.9 % (0-2.0); EOS % 1.2 % (0-4.5); HEMATOCRIT 38.3 % (35.4-49); LYMPH % 12.8 % (8-40); MCH 30.2 pg (25.7-33.7); MEAN CELL VOLUME 88.8 fl (80-96); MEAN PLT VOLUME 6.6 fl (7.5-11.1); MONO % 10.8 % (3.8-10.2); NEUT % 74.3 % (42.8-82.8); PLATELET COUNT 187 10^3/uL (134-434); RBC 4.31 M/mm3 (4.00-5.60); RDW 14.3 % (11.9-15.9); WHITE BLOOD COUNT 10.2 K/mm3 (4.0-10.0)
[2023-08-15 22:39] LABS: INR 0.93 (0.83-1.09); PROTHROMBIN TIME (PATIENT) 10.7 SEC (9.7-13.0)
[2023-08-15 22:42] LABS: ACTIVATED PTT 27.1 SECONDS (25.2-36.5)
[2023-08-15] MEDS ORDERED: ENOXAPARIN NA (PORCINE) 30 MG/0.3 ML DISP.SYRIN SQ ONE (23:03)
[2023-08-15 23:05] LABS: POTASSIUM 4.9 mmol/L (3.5-5.1)
[2023-08-15 23:10] LABS: ALBUMIN 3.3 g/dl (3.4-5.0); BLOOD UREA NITROGEN 9.3 mg/dL (7-18)
[2023-08-15] MEDS: ENOXAPARIN NA (PORCINE) 30 MG/0.3 ML DISP.SYRIN SQ ONE ×3 (23:11)
[2023-08-15 23:13] LABS: CREATININE 0.8 mg/dL (0.55-1.3)
[2023-08-15] MEDS ORDERED: DOCUSATE SODIUM 100 MG CAPSULE (FP) PO PRN (23:13)
[2023-08-15] MEDS ORDERED: ACETAMINOPHEN 325 MG TABLET (FP) PO PRN (23:13)
[2023-08-15 23:15] LABS: BILIRUBIN,TOTAL 0.4 mg/dL (0.2-1)
[2023-08-15] MEDS ORDERED: ACETAMINOPHEN 1000 MG/100 ML BAG IVPB PRN (23:17)
[2023-08-16] MEDS ORDERED: ACETAMINOPHEN 325 MG TABLET (FP) ONE ×2 (06:37→18:34)
[2023-08-16] MEDS: ACETAMINOPHEN 325 MG TABLET (FP) PO PRN (06:40)
[2023-08-16 07:15] LABS: BASO % 0.7 % (0-2.0); HEMATOCRIT 37.8 % (35.4-49); HEMOGLOBIN 12.9 GM/dL (11.7-16.9); LYMPH % 30.3 % (8-40); MCH 30.4 pg (25.7-33.7); MCHC 34.2 g/dl (32.0-35.9); MEAN CELL VOLUME 88.8 fl (80-96); MEAN PLT VOLUME 7.4 fl (7.5-11.1); MONO % 14.4 % (3.8-10.2); NEUT % 51.6 % (42.8-82.8); PLATELET COUNT 210 10^3/uL (134-434); RBC 4.25 M/mm3 (4.00-5.60); RDW 14.5 % (11.9-15.9); WHITE BLOOD COUNT 7.2 K/mm3 (4.0-10.0)
[2023-08-16 07:28] LABS: POTASSIUM 4.1 mmol/L (3.5-5.1)
[2023-08-16 07:30] LABS: BLOOD UREA NITROGEN 6.6 mg/dL (7-18); MAGNESIUM 1.9 mg/dL (1.8-2.4)
[2023-08-16 07:33] LABS: PHOSPHOROUS 3.6 mg/dL (2.5-4.9)
[2023-08-16 07:34] LABS: CREATININE 0.8 mg/dL (0.55-1.3)
[2023-08-16] MEDS ORDERED: INSULIN ASPART SLIDING SCALE (NOVOLOG) 1 VIAL SQ ONE ×2 (08:19→11:49)
[2023-08-16] MEDS: INSULIN ASPART SLIDING SCALE (NOVOLOG) 1 VIAL SQ SCH (08:24)
[2023-08-16] MEDS ORDERED: LOSARTAN POTASSIUM 50 MG TABLET ONE (09:50)
[2023-08-16] MEDS ORDERED: TAMSULOSIN HCL 0.4 MG CAP ONE (09:51)
[2023-08-16] MEDS ORDERED: PATIENT'S OWN MEDICATION (NON-FORMULARY) (Icosapent Ethyl [Vascepa] 1 GM Capsule) PO SCH (10:00)
[2023-08-16] MEDS: OLANZapine 2.5 MG TABLET PO SCH (10:28)
[2023-08-16] MEDS: LOSARTAN POTASSIUM 50 MG TABLET PO SCH (10:28)
[2023-08-16] MEDS: TAMSULOSIN HCL 0.4 MG CAP PO SCH (10:28)
[2023-08-16] MEDS ORDERED: ENOXAPARIN NA (PORCINE) 100 MG/1 ML DISP.SYRIN SQ ONE (12:45)
[2023-08-16] MEDS: ENOXAPARIN NA (PORCINE) 100 MG/1 ML DISP.SYRIN SQ SCH (13:07)
[2023-08-16] MEDS ORDERED: ACETAMINOPHEN INJECTION 100 ML IVPB ONE (15:21)
[2023-08-16 16:07] LABS: URINE APPEARANCE CLEAR; URINE BILIRUBIN NEGATIVE (NEGATIVE); URINE COLOR YELLOW; URINE GLUCOSE (UA) NEGATIVE (NEGATIVE); URINE KETONE NEGATIVE (NEGATIVE); URINE LEUK ESTERASE NEGATIVE (NEGATIVE); URINE NITRITE NEGATIVE (NEGATIVE); URINE PROTEIN NEGATIVE (NEGATIVE); URINE UROBILINOGEN 0.2 mg/dL (0.2-1.0)
[2023-08-16 16:57] LABS: N-TERMINAL BNP 64.5 pg/ml (5-125)
[2023-08-16] MEDS: ENOXAPARIN NA (PORCINE) 120 MG/0.8 ML DISP.SYRIN SQ ONE (19:16)
[2023-08-16] MEDS: MELATONIN 1 MG TABLET PO PRN (23:06)
[2023-08-16 23:31] VITALS: BMI 34.9
[2023-08-18] MEDS: ENOXAPARIN NA (PORCINE) 100 MG/1 ML DISP.SYRIN SQ SCH (13:30)
[2023-08-18] MEDS ORDERED: ENOXAPARIN NA (PORCINE) 100 MG/1 ML DISP.SYRIN SQ SCH (22:00)
[2023-08-19 09:44] LABS: BASO % 0.5 % (0-2.0); EOS % 2.8 % (0-4.5); HEMATOCRIT 35.7 % (35.4-49); HEMOGLOBIN 12.2 GM/dL (11.7-16.9); LYMPH % 28.9 % (8-40); MCH 30.1 pg (25.7-33.7); MCHC 34.1 g/dl (32.0-35.9); MEAN CELL VOLUME 88.2 fl (80-96); MEAN PLT VOLUME 6.8 fl (7.5-11.1); MONO % 10.3 % (3.8-10.2); NEUT % 57.5 % (42.8-82.8); PLATELET COUNT 282 10^3/uL (134-434); RBC 4.04 M/mm3 (4.00-5.60); RDW 14.1 % (11.9-15.9); WHITE BLOOD COUNT 7.3 K/mm3 (4.0-10.0)
[2023-08-19 10:04] LABS: POTASSIUM 4.3 mmol/L (3.5-5.1)
[2023-08-19 10:09] LABS: CALCIUM 8.2 mg/dL (8.5-10.1)
[2023-08-19 10:10] LABS: ALBUMIN 3.1 g/dl (3.4-5.0); BLOOD UREA NITROGEN 6.3 mg/dL (7-18)
[2023-08-19 10:13] LABS: CREATININE 0.7 mg/dL (0.55-1.3)
[2023-08-19 10:14] LABS: BILIRUBIN,TOTAL 0.4 mg/dL (0.2-1); TOT PROT 6.5 g/dl (6.4-8.2)
[2023-08-20] MEDS ORDERED: HEPARIN NA (PORCINE) 5,000 UNITS/ML 1ML VIAL ONE ×2 (11:25→14:00)
[2023-08-20] MEDS ORDERED: ONDANSETRON 4 MG/2 ML VIAL IVPUSH PRN ×2 (12:21→16:07)
[2023-08-20] MEDS ORDERED: PROMETHAZINE HCL 25 MG/1 ML VIAL IVPB PRN ×2 (12:21→16:07)
[2023-08-20] MEDS ORDERED: FENTANYL CITRATE/PF 50 MCG/ML VIAL ONE ×3 (12:28→15:52)
[2023-08-20] MEDS ORDERED: ROCURONIUM BROMIDE 50 MG/5 ML VIAL ONE (12:28)
[2023-08-20] MEDS ORDERED: PROPOFOL 20 ML ONE (12:28)
[2023-08-20] MEDS ORDERED: MIDAZOLAM HCL 2 MG/2 ML SINGLE DOSE VIAL ONE (12:29)
[2023-08-20] MEDS ORDERED: LIDOCAINE HCL/PF 2% SDV 5ML VIAL ONE (12:29)
[2023-08-20] MEDS ORDERED: LACTATED RINGERS SOLUTION 1,000 ML IV SCH (12:30)
[2023-08-20] MEDS ORDERED: SODIUM CHLORIDE 0.9% P/F 10 ML VIAL IJ ONE (12:32)
[2023-08-20] MEDS ORDERED: ceFAZolin SODIUM 1 GM VIAL ONE (12:32)
[2023-08-20] MEDS ORDERED: methylPREDNISolone NA SUCC 125 MG/2 ML VIAL ONE (13:00)
[2023-08-20] MEDS ORDERED: DEXAMETHASONE SOD PHOSPHATE 4 MG/1 ML VIAL ONE (13:00)
[2023-08-20] MEDS: ceFAZolin SODIUM 1 GM VIAL IVPB ONE (13:02)
[2023-08-20] MEDS ORDERED: ONDANSETRON 4 MG/2 ML VIAL ONE (13:12)
[2023-08-20] MEDS: LIDOCAINE HCL 1%, 10 MG/ML (20ML VIAL) INF ONE (13:28)
[2023-08-20] MEDS ORDERED: METOPROLOL TARTRATE 5 MG/5 ML VIAL ONE (15:05)
[2023-08-20] MEDS: LACTATED RINGERS SOLUTION 1,000 ML IV SCH (16:05)
[2023-08-20] MEDS ORDERED: DOCUSATE SODIUM 100 MG CAPSULE (FP) PO PRN (16:07)
[2023-08-20] MEDS ORDERED: INSULIN ASPART SLIDING SCALE (NOVOLOG) 1 VIAL SQ ONE (16:22)
[2023-08-20] MEDS: INSULIN ASPART SLIDING SCALE (NOVOLOG) 1 VIAL SQ SCH (16:24)
[2023-08-20] MEDS: ACETAMINOPHEN 325 MG TABLET (FP) PO PRN (18:11)
[2023-08-20] MEDS: TAMSULOSIN HCL 0.4 MG CAP PO SCH (21:17)
[2023-08-20] MEDS: ENOXAPARIN NA (PORCINE) 100 MG/1 ML DISP.SYRIN SQ SCH (21:17)
[2023-08-20] MEDS ORDERED: PATIENT'S OWN MEDICATION (NON-FORMULARY) (Icosapent Ethyl [Vascepa] 1 GM) PO SCH (22:00)
[2023-08-20] MEDS: MELATONIN 1 MG TABLET PO PRN (23:27)
[2023-08-21 05:31] VITALS: RESP 20
[2023-08-21] MEDS: LOSARTAN POTASSIUM 50 MG TABLET PO SCH (09:03)
[2023-08-21] MEDS: OLANZapine 2.5 MG TABLET PO SCH (09:03)
[2023-08-21 15:42] VITALS: BP 125/70; PULSE 94; TEMP 97.8
== END 2023-08-21 14:51 | disposition home or self-care (01) | DRG 272 ==
LOC: JER 21:09 → JERBED 21:58 → J7W 08-16 22:47 → OBSVTOIN 08-17 13:34 → J6S 08-18 13:10
PROVIDERS: ADMIT Internal Medicine; ATTEND Family Medicine
PROC: B50CYZZ Plain Radiography of Left Lower Extremity Veins using Other Contrast (ICD-10-PCS; principal; 2023-08-20 12:00)
PROC: 06CY3ZZ Extirpation of Matter from Lower Vein, Percutaneous Approach (ICD-10-PCS; 2023-08-20 12:00)
DX: I82.402 Acute embolism and thrombosis of unspecified deep veins of left lower extremity (principal); I10 Essential (primary) hypertension; E11.9 Type 2 diabetes mellitus without complications; K21.9 Gastro-esophageal reflux disease without esophagitis; F41.8 Other specified anxiety disorders; N40.0 Benign prostatic hyperplasia without lower urinary tract symptoms; K57.90 Diverticulosis of intestine, part unspecified, without perforation or abscess without bleeding; K44.9 Diaphragmatic hernia without obstruction or gangrene; K75.81 Nonalcoholic steatohepatitis (NASH); E78.5 Hyperlipidemia, unspecified
CPT/HCPCS: 36415; 71046-TC-FY; 76000-TC-FY; 80048; 80053; 81003; 82962; 83735; 83880; 84100; 85025; 85610; 85730; 86850; 86900; 86901; 88304-TC; 93005; 93010; 93306-TC; 93971-TC; 94760; 97116-GP; 97161-GP; 99285-25; C1757; C1769; C1894; G0378; J1644

== ENCOUNTER 2023-10-10 10:09 | Inpatient (IN) | payer OTHER ==
[2023-10-10 10:24] VITALS: BMI 31.0
[2023-10-10 12:12] LABS: ACTIVATED PTT 37.7 SECONDS (25.2-36.5); INR 1.04 (0.83-1.09); PROTHROMBIN TIME (PATIENT) 11.9 SEC (9.7-13.0)
[2023-10-10 12:17] LABS: POTASSIUM 5.2 mmol/L (3.5-5.1)
[2023-10-10 12:18] LABS: CALCIUM 9.3 mg/dL (8.5-10.1)
[2023-10-10 12:19] LABS: ALBUMIN 3.8 g/dl (3.4-5.0); BLOOD UREA NITROGEN 10.4 mg/dL (7-18)
[2023-10-10 12:22] LABS: CREATININE 0.9 mg/dL (0.55-1.3)
[2023-10-10 12:23] LABS: BILIRUBIN,TOTAL 0.5 mg/dL (0.2-1)
[2023-10-10 12:24] LABS: TOT PROT 7.3 g/dl (6.4-8.2)
[2023-10-10 12:30] LABS: URINE APPEARANCE CLEAR; URINE BILIRUBIN NEGATIVE (NEGATIVE); URINE COLOR YELLOW; URINE GLUCOSE (UA) NEGATIVE (NEGATIVE); URINE KETONE NEGATIVE (NEGATIVE); URINE LEUK ESTERASE NEGATIVE (NEGATIVE); URINE NITRITE NEGATIVE (NEGATIVE); URINE PROTEIN NEGATIVE (NEGATIVE); URINE UROBILINOGEN 0.2 mg/dL (0.2-1.0)
[2023-10-10 13:47] LABS: BASO % 1.1 % (0-2.0); EOS % 0.9 % (0-4.5); HEMATOCRIT 42.2 % (35.4-49); HEMOGLOBIN 14.4 GM/dL (11.7-16.9); LYMPH % 25.5 % (8-40); MCH 30.2 pg (25.7-33.7); MEAN CELL VOLUME 88.8 fl (80-96); MEAN PLT VOLUME 6.6 fl (7.5-11.1); MONO % 7.3 % (3.8-10.2); NEUT % 65.2 % (42.8-82.8); PLATELET COUNT 287 10^3/uL (134-434); RBC 4.75 M/mm3 (4.00-5.60); RDW 13.8 % (11.9-15.9); WHITE BLOOD COUNT 6.8 K/mm3 (4.0-10.0)
[2023-10-10 14:07] LABS: POTASSIUM 5.1 mmol/L (3.5-5.1)
[2023-10-10 14:09] LABS: ALBUMIN 4.1 g/dl (3.4-5.0); BLOOD UREA NITROGEN 9.4 mg/dL (7-18); CALCIUM 9.8 mg/dL (8.5-10.1)
[2023-10-10 14:12] LABS: CREATININE 0.8 mg/dL (0.55-1.3)
[2023-10-10 14:14] LABS: BILIRUBIN,TOTAL 0.5 mg/dL (0.2-1); TOT PROT 7.6 g/dl (6.4-8.2)
[2023-10-10] MEDS ORDERED: ENOXAPARIN NA (PORCINE) 100 MG/1 ML DISP.SYRIN SQ ONE (15:37)
[2023-10-10] MEDS: ENOXAPARIN NA (PORCINE) 100 MG/1 ML DISP.SYRIN SQ SCH (15:44)
[2023-10-10] MEDS ORDERED: traMADol HCL 50 MG TABLET PO PRN (16:57)
[2023-10-10] MEDS: INSULIN ASPART SLIDING SCALE (NOVOLOG) 1 VIAL SQ SCH (17:10)
[2023-10-10] MEDS: ACETAMINOPHEN 500 MG TABLET (FP) PO PRN (17:15)
[2023-10-10] MEDS: PIPERACILLIN/TAZOB 3.375 GM 3.375 GM in DEXTROSE 5%-WATER - 50 ML IVPB SCH (17:28)
[2023-10-10] MEDS ORDERED: PIPERACILLIN/TAZOB 3.375 GM 3.375 GM in DEXTROSE 5%-WATER - 50 ML IVPB SCH (18:00)
[2023-10-10] MEDS: TAMSULOSIN HCL 0.4 MG CAP PO SCH (21:54)
[2023-10-10] MEDS: MELATONIN 5 MG TABLETS PO SCH (23:57)
[2023-10-11 07:44] LABS: BASO % 0.6 % (0-2.0); EOS % 3.1 % (0-4.5); HEMATOCRIT 40.9 % (35.4-49); HEMOGLOBIN 13.9 GM/dL (11.7-16.9); LYMPH % 45.4 % (8-40); MCH 30.1 pg (25.7-33.7); MEAN CELL VOLUME 88.6 fl (80-96); MONO % 10.1 % (3.8-10.2); NEUT % 40.8 % (42.8-82.8); PLATELET COUNT 258 10^3/uL (134-434); RBC 4.62 M/mm3 (4.00-5.60); RDW 14.1 % (11.9-15.9); WHITE BLOOD COUNT 5.1 K/mm3 (4.0-10.0)
[2023-10-11 07:49] LABS: POTASSIUM 4.5 mmol/L (3.5-5.1)
[2023-10-11 07:55] LABS: CALCIUM 8.8 mg/dL (8.5-10.1)
[2023-10-11 07:56] LABS: ALBUMIN 3.6 g/dl (3.4-5.0); BLOOD UREA NITROGEN 12.8 mg/dL (7-18)
[2023-10-11 07:58] LABS: BILIRUBIN,TOTAL 0.4 mg/dL (0.2-1); CREATININE 0.9 mg/dL (0.55-1.3); TOT PROT 6.7 g/dl (6.4-8.2)
[2023-10-11 07:59] LABS: PHOSPHOROUS 4.3 mg/dL (2.5-4.9)
[2023-10-11] MEDS: OLANZapine 2.5 MG TABLET PO SCH (10:35)
[2023-10-11] MEDS: LOSARTAN POTASSIUM 50 MG TABLET PO SCH (10:35)
[2023-10-11] MEDS: methylPREDNISolone NA SUCC 40 MG/1 ML VIAL IVPUSH SCH (13:13)
[2023-10-11] MEDS: VANCOMYCIN/WATER 1250 MG 1,250 MG/250 ML BAG IVPB SCH (13:14)
[2023-10-11] MEDS: AMPICILLIN NA/SULBACTAM NA 3 GM in SODIUM CHLORIDE 100 ML IVPB SCH (15:46)
[2023-10-11] MEDS: SODIUM CHLORIDE 0.45%/POT 20 MEQ/1,000 ML INFUS.BAG IV SCH (17:26)
[2023-10-12] MEDS: methylPREDNISolone NA SUCC 40 MG/1 ML VIAL IVPB SCH (17:08)
[2023-10-13] MEDS: MAG HYDROX/AL HYDROX/SIMETH 30 ML UNIT-DOSE CUP PO ONE (00:15)
[2023-10-13 05:49] VITALS: RESP 20
[2023-10-13 06:47] LABS: BASO % 0.3 % (0-2.0); HEMATOCRIT 39.8 % (35.4-49); HEMOGLOBIN 13.5 GM/dL (11.7-16.9); LYMPH % 11.4 % (8-40); MCH 30.2 pg (25.7-33.7); MEAN CELL VOLUME 88.9 fl (80-96); MEAN PLT VOLUME 7.6 fl (7.5-11.1); MONO % 5.2 % (3.8-10.2); NEUT % 83.1 % (42.8-82.8); PLATELET COUNT 262 10^3/uL (134-434); RBC 4.48 M/mm3 (4.00-5.60); RDW 13.7 % (11.9-15.9); WHITE BLOOD COUNT 10.1 K/mm3 (4.0-10.0)
[2023-10-13 07:05] LABS: POTASSIUM 4.5 mmol/L (3.5-5.1)
[2023-10-13 07:20] LABS: ALBUMIN 3.6 g/dl (3.4-5.0); BILIRUBIN,TOTAL 0.2 mg/dL (0.2-1); CALCIUM 8.3 mg/dL (8.5-10.1); CREATININE 0.9 mg/dL (0.55-1.3); TOT PROT 6.8 g/dl (6.4-8.2)
[2023-10-13] MEDS: INSULIN (LEVEMIR) 100 UNITS/ML UNITS SQ SCH (09:19)
[2023-10-13] MEDS: MAG HYDROX/AL HYDROX/SIMETH 30 ML UNIT-DOSE CUP PO PRN (12:10)
[2023-10-13] MEDS ORDERED: OLANZapine 5 MG TABLET PO SCH (14:46)
[2023-10-13 14:51] VITALS: BP 165/88
[2023-10-13] MEDS ORDERED: OLANZapine 5 MG TABLET PO ONE (17:43)
[2023-10-13 19:22] VITALS: PULSE 106; TEMP 98.2
== END 2023-10-13 17:15 | disposition left against medical advice (07) | DRG 300 ==
LOC: JER 10:09 → JERBED 14:09 → J4W 15:57
PROVIDERS: ADMIT Internal Medicine; ATTEND Internal Medicine
DX: I82.412 Acute embolism and thrombosis of left femoral vein (principal); L02.11 Cutaneous abscess of neck; I10 Essential (primary) hypertension; I82.442 Acute embolism and thrombosis of left tibial vein; E11.9 Type 2 diabetes mellitus without complications; E78.5 Hyperlipidemia, unspecified; L72.3 Sebaceous cyst; N40.0 Benign prostatic hyperplasia without lower urinary tract symptoms; F41.9 Anxiety disorder, unspecified; Z79.84 Long term (current) use of oral hypoglycemic drugs; R00.0 Tachycardia, unspecified; K75.81 Nonalcoholic steatohepatitis (NASH)
CPT/HCPCS: 36415; 70490-TC; 71250-TC; 71275-TC; 80053; 80061; 81003; 82550; 82962; 83036; 83735; 84100; 84443; 84484; 85025; 85610; 85730; 86140; 86850; 86900; 86901; 87040; 87070; 87086; 87205; 93005; 93010; 93306-TC; 93970-TC; 93978; 97116-GP; 97161-GP; 99285-25; J3480; Q9967

== ENCOUNTER 2023-11-07 10:03 | Inpatient (IN) | payer OTHER ==
[2023-11-07 10:49] VITALS: BMI 33.1
[2023-11-07 11:20] LABS: VENOUS BASE EXCESS -2.3 mmol/L (-2-2); VENOUS O2 SATURATION 70.4 % (70-80); VENOUS PCO2 33.9 mmHg (38-52); VENOUS PH 7.418 (7.310-7.410)
[2023-11-07 11:25] LABS: BASO % 0.4 % (0-2.0); EOS % 1.2 % (0-4.5); HEMATOCRIT 40.4 % (35.4-49); HEMOGLOBIN 13.9 GM/dL (11.7-16.9); LYMPH % 24.6 % (8-40); MCH 29.8 pg (25.7-33.7); MCHC 34.4 g/dl (32.0-35.9); MEAN CELL VOLUME 86.6 fl (80-96); MEAN PLT VOLUME 6.4 fl (7.5-11.1); MONO % 10.7 % (3.8-10.2); NEUT % 63.1 % (42.8-82.8); PLATELET COUNT 288 10^3/uL (134-434); RBC 4.66 M/mm3 (4.00-5.60); RDW 14.2 % (11.9-15.9); WHITE BLOOD COUNT 5.9 K/mm3 (4.0-10.0)
[2023-11-07 11:30] LABS: INR 1.01 (0.83-1.09); PROTHROMBIN TIME (PATIENT) 11.6 SEC (9.7-13.0)
[2023-11-07 11:32] LABS: POTASSIUM 4.9 mmol/L (3.5-5.1)
[2023-11-07 11:33] LABS: ACTIVATED PTT 34.2 SECONDS (25.2-36.5)
[2023-11-07 11:35] LABS: BLOOD UREA NITROGEN 11.5 mg/dL (7-18); CALCIUM 9.6 mg/dL (8.5-10.1); MAGNESIUM 2.1 mg/dL (1.8-2.4)
[2023-11-07 11:38] LABS: CREATININE 0.8 mg/dL (0.55-1.3)
[2023-11-07 11:40] LABS: BILIRUBIN,TOTAL 0.8 mg/dL (0.2-1); TOT PROT 7.1 g/dl (6.4-8.2)
[2023-11-07 11:44] LABS: N-TERMINAL BNP 24.6 pg/ml (5-125)
[2023-11-07] MEDS ORDERED: HEPARIN NA (PORCINE) 5,000 UNITS/ML 1ML VIAL IVPUSH PRN ×3 (12:48→18:22)
[2023-11-07] MEDS ORDERED: morphine SULFATE 4 MG/ML VIAL ONE (13:09)
[2023-11-07] MEDS: morphine CARPU-JECT 4 MG/1 ML DISP.SYRIN IVPUSH ONE (13:25)
[2023-11-07] MEDS: SODIUM CHLORIDE 0.9% 500 ML INFUS.BAG IV ONE (13:30)
[2023-11-07] MEDS: HEPARIN NA (PORCINE) 5,000 UNITS/ML 1ML VIAL IVPUSH ONE (13:31)
[2023-11-07] MEDS: HEPARIN INFUSION - 25,000 UNITS/500 ML INFUS.BAG IVPB SCH (13:35)
[2023-11-07] MEDS ORDERED: ACETAMINOPHEN 325 MG TABLET (FP) ONE (14:47)
[2023-11-07] MEDS: ACETAMINOPHEN 325 MG TABLET (FP) PO ONE (14:50)
[2023-11-07] MEDS ORDERED: ALPRAZolam 0.25 MG TABLET PO PRN (18:48)
[2023-11-07] MEDS: HEPARIN - 25,000 UNIT in SODIUM CHLORIDE 495 ML IV SCH ×2 (20:22→22:57)
[2023-11-07] MEDS ORDERED: ENOXAPARIN NA (PORCINE) 100 MG/1 ML DISP.SYRIN SQ SCH ×2 (22:00)
[2023-11-07] MEDS: HEPARIN NA (PORCINE) 5,000 UNITS/ML 1ML VIAL IVPUSH PRN (22:59)
[2023-11-07] MEDS ORDERED: TAMSULOSIN HCL 0.4 MG CAP ONE (23:55)
[2023-11-07 23:57] LABS: HIV INTERPRETATION NEGATIVE (NEGATIVE)
[2023-11-07] MEDS: TAMSULOSIN HCL 0.4 MG CAP PO SCH (23:59)
[2023-11-08] MEDS: hydrOXYzine PAMOATE 50 MG CAPSULE (FP) PO ONE (05:41)
[2023-11-08 07:58] LABS: BASO % 0.7 % (0-2.0); EOS % 1.7 % (0-4.5); HEMATOCRIT 40.9 % (35.4-49); HEMOGLOBIN 13.6 GM/dL (11.7-16.9); LYMPH % 39.8 % (8-40); MCH 29.6 pg (25.7-33.7); MCHC 33.3 g/dl (32.0-35.9); MEAN PLT VOLUME 6.6 fl (7.5-11.1); MONO % 8.5 % (3.8-10.2); NEUT % 49.3 % (42.8-82.8); PLATELET COUNT 259 10^3/uL (134-434); RBC 4.59 M/mm3 (4.00-5.60); RDW 14.2 % (11.9-15.9); WHITE BLOOD COUNT 6.3 K/mm3 (4.0-10.0)
[2023-11-08 08:18] LABS: POTASSIUM 4.5 mmol/L (3.5-5.1)
[2023-11-08 08:20] LABS: ALBUMIN 3.7 g/dl (3.4-5.0); CALCIUM 8.7 mg/dL (8.5-10.1); MAGNESIUM 2.5 mg/dL (1.8-2.4)
[2023-11-08 08:21] LABS: BLOOD UREA NITROGEN 13.2 mg/dL (7-18)
[2023-11-08 08:23] LABS: CREATININE 0.8 mg/dL (0.55-1.3)
[2023-11-08 08:24] LABS: PHOSPHOROUS 3.1 mg/dL (2.5-4.9); TOT PROT 6.6 g/dl (6.4-8.2)
[2023-11-08 08:26] LABS: BILIRUBIN,TOTAL 0.4 mg/dL (0.2-1)
[2023-11-08] MEDS: OLANZapine 2.5 MG TABLET PO SCH (10:12)
[2023-11-08] MEDS: LOSARTAN POTASSIUM 50 MG TABLET PO SCH (10:12)
[2023-11-08] MEDS: MELATONIN 1 MG TABLET PO ONE (21:45)
[2023-11-08] MEDS: ACETAMINOPHEN 325 MG TABLET (FP) PO ONE (21:46)
[2023-11-08] MEDS: INSULIN ASPART SLIDING SCALE (NOVOLOG) 1 VIAL SQ SCH (21:46)
[2023-11-09] MEDS: traMADol HCL 50 MG TABLET PO PRN (06:11)
[2023-11-09] MEDS ORDERED: HALOPERIDOL LACTATE 5 MG/ML IM PRN (08:33)
[2023-11-09] MEDS: HALOPERIDOL LACTATE 5 MG/ML IM ONE (08:38)
[2023-11-09] MEDS: diazePAM CARPU-JECT 10 MG/2 ML DISP.SYRIN IVPUSH ONE (09:00)
[2023-11-09 10:27] VITALS: RESP 18
[2023-11-09] MEDS: ENOXAPARIN NA (PORCINE) 100 MG/1 ML DISP.SYRIN SQ SCH (10:30)
[2023-11-09 14:40] VITALS: BP 139/75; PULSE 101; TEMP 98.2
== END 2023-11-09 17:39 | disposition home health service (06) | DRG 641 ==
LOC: JER 10:03 → JERBED 13:44 → J4S 11-08 03:26
PROVIDERS: ADMIT Internal Medicine; ATTEND Internal Medicine
DX: E87.1 Hypo-osmolality and hyponatremia (principal); I82.502 Chronic embolism and thrombosis of unspecified deep veins of left lower extremity; K21.9 Gastro-esophageal reflux disease without esophagitis; E11.9 Type 2 diabetes mellitus without complications; I10 Essential (primary) hypertension; E78.5 Hyperlipidemia, unspecified; F41.8 Other specified anxiety disorders; K22.2 Esophageal obstruction; K76.0 Fatty (change of) liver, not elsewhere classified; K57.90 Diverticulosis of intestine, part unspecified, without perforation or abscess without bleeding; N40.0 Benign prostatic hyperplasia without lower urinary tract symptoms; K44.9 Diaphragmatic hernia without obstruction or gangrene; R45.1 Restlessness and agitation
CPT/HCPCS: 36415; 71045-TC-FY; 80053; 80061; 82436; 82533; 82803; 82962; 83036; 83735; 83880; 83930; 83935; 84100; 84133; 84300; 84443; 84484; 85025; 85379; 85610; 85730; 86803; 87389; 93005; 93010; 93971-TC; 99285-25; J1644

== ENCOUNTER 2023-11-12 09:15 | Emergency (ER) | payer OTHER ==
[2023-11-12 09:25] VITALS: TEMP 98.6; BMI 33.0
[2023-11-12 10:32] LABS: BASO % 0.3 % (0-2.0); EOS % 0.6 % (0-4.5); HEMATOCRIT 41.5 % (35.4-49); INR 1.06 (0.83-1.09); LYMPH % 17.1 % (8-40); MCH 29.8 pg (25.7-33.7); MCHC 33.7 g/dl (32.0-35.9); MEAN CELL VOLUME 88.5 fl (80-96); MEAN PLT VOLUME 6.5 fl (7.5-11.1); MONO % 8.7 % (3.8-10.2); NEUT % 73.3 % (42.8-82.8); PLATELET COUNT 270 10^3/uL (134-434); RBC 4.69 M/mm3 (4.00-5.60); RDW 14.6 % (11.9-15.9); WHITE BLOOD COUNT 7.4 K/mm3 (4.0-10.0)
[2023-11-12 10:35] LABS: ACTIVATED PTT 37.5 SECONDS (25.2-36.5)
[2023-11-12 10:42] VITALS: BP 150/87; PULSE 99; RESP 16
[2023-11-12 10:43] LABS: POTASSIUM 4.6 mmol/L (3.5-5.1)
[2023-11-12 10:46] LABS: BLOOD UREA NITROGEN 14.2 mg/dL (7-18); CALCIUM 9.8 mg/dL (8.5-10.1)
[2023-11-12 10:49] LABS: CREATININE 0.9 mg/dL (0.55-1.3)
[2023-11-12 10:50] LABS: BILIRUBIN,TOTAL 0.3 mg/dL (0.2-1); TOT PROT 7.1 g/dl (6.4-8.2)
[2023-11-12 10:53] LABS: N-TERMINAL BNP 34.1 pg/ml (5-125)
[2023-11-12] MEDS: SODIUM CHLORIDE 0.9% 500 ML INFUS.BAG IV ONE (11:28)
[2023-11-12] MEDS: diphenhydrAMINE HCL 50 MG CAPSULE PO ONE (12:10)
[2023-11-12 12:20] LABS: HIV INTERPRETATION NEGATIVE (NEGATIVE)
== END 2023-11-12 13:37 | disposition home or self-care (01) ==
LOC: JER 09:15
PROC: 3E033GC Introduction of Other Therapeutic Substance into Peripheral Vein, Percutaneous Approach (ICD-10-PCS; principal; 2023-11-12)
DX: F41.9 Anxiety disorder, unspecified (principal); R06.02 Shortness of breath; R00.0 Tachycardia, unspecified; I82.502 Chronic embolism and thrombosis of unspecified deep veins of left lower extremity; M79.662 Pain in left lower leg; Z20.822 Contact with and (suspected) exposure to COVID-19
CPT/HCPCS: 0241U-QW; 36415; 71045-TC-FY; 71275-TC; 80053; 83880; 84484; 85025; 85610; 85730; 86803; 86850; 86900; 86901; 87389; 93005; 93010; 99285-25

== ENCOUNTER 2024-01-13 12:22 | Emergency (ER) | payer OTHER ==
[2024-01-13 13:09] VITALS: BMI 30.4
[2024-01-13 13:47] LABS: BASO % 0.2 % (0-2.0); EOS % 0.3 % (0-4.5); HEMATOCRIT 39.4 % (35.4-49); HEMOGLOBIN 13.5 GM/dL (11.7-16.9); LYMPH % 15.8 % (8-40); MCH 30.4 pg (25.7-33.7); MCHC 34.3 g/dl (32.0-35.9); MEAN CELL VOLUME 88.6 fl (80-96); MEAN PLT VOLUME 6.2 fl (7.5-11.1); MONO % 6.3 % (3.8-10.2); NEUT % 77.4 % (42.8-82.8); PLATELET COUNT 286 10^3/uL (134-434); RBC 4.45 M/mm3 (4.00-5.60); WHITE BLOOD COUNT 8.8 K/mm3 (4.0-10.0)
[2024-01-13 13:52] VITALS: BP 177/89; PULSE 104; RESP 16; TEMP 97.8
[2024-01-13 13:53] LABS: INR 0.89 (0.83-1.09); PROTHROMBIN TIME (PATIENT) 10.3 SEC (9.7-13.0)
[2024-01-13 13:56] LABS: ACTIVATED PTT 32.6 SECONDS (25.2-36.5)
[2024-01-13 14:17] LABS: POTASSIUM 4.4 mmol/L (3.5-5.1)
[2024-01-13 14:19] LABS: BLOOD UREA NITROGEN 19.2 mg/dL (7-18); CALCIUM 9.3 mg/dL (8.5-10.1)
[2024-01-13 14:20] LABS: ALBUMIN 4.2 g/dl (3.4-5.0)
[2024-01-13 14:23] LABS: CREATININE 0.7 mg/dL (0.55-1.3)
[2024-01-13 14:24] LABS: BILIRUBIN,TOTAL 0.5 mg/dL (0.2-1); TOT PROT 7.2 g/dl (6.4-8.2)
== END 2024-01-13 15:00 | disposition left against medical advice (07) ==
LOC: JER 12:22
DX: E87.1 Hypo-osmolality and hyponatremia (principal); K62.5 Hemorrhage of anus and rectum
CPT/HCPCS: 36415; 80053; 82272; 85025; 85610; 85730; 86850; 86900; 86901; 99283-25

== ENCOUNTER 2024-01-17 07:39 | Inpatient (IN) | payer OTHER ==
[2024-01-17 08:21] LABS: VENOUS O2 SATURATION 53.5 % (70-80); VENOUS PH 7.378 (7.310-7.410)
[2024-01-17 08:29] LABS: INR 0.87 (0.83-1.09); PROTHROMBIN TIME (PATIENT) 10.1 SEC (9.7-13.0)
[2024-01-17 08:39] LABS: ACTIVATED PTT 16.6 SECONDS (25.2-36.5)
[2024-01-17 08:41] LABS: POTASSIUM 4.9 mmol/L (3.5-5.1)
[2024-01-17 08:43] LABS: ALBUMIN 3.9 g/dl (3.4-5.0); CALCIUM 8.6 mg/dL (8.5-10.1)
[2024-01-17 08:44] LABS: BLOOD UREA NITROGEN 16.2 mg/dL (7-18); MAGNESIUM 2.1 mg/dL (1.8-2.4)
[2024-01-17 08:47] LABS: CREATININE 0.8 mg/dL (0.55-1.3); PHOSPHOROUS 2.9 mg/dL (2.5-4.9)
[2024-01-17 08:48] LABS: BILIRUBIN,TOTAL 0.7 mg/dL (0.2-1); TOT PROT 6.9 g/dl (6.4-8.2)
[2024-01-17 08:57] LABS: HEMATOCRIT 41.6 % (35.4-49); HEMOGLOBIN 14.2 GM/dL (11.7-16.9); MCH 30.5 pg (25.7-33.7); MCHC 34.2 g/dl (32.0-35.9); MEAN CELL VOLUME 89.2 fl (80-96); RBC 4.66 M/mm3 (4.00-5.60); RDW 14.9 % (11.9-15.9)
[2024-01-17 08:58] LABS: WHITE BLOOD COUNT 5.5 K/mm3 (4.0-10.0)
[2024-01-17 10:12] LABS: ANISOCYTOSIS 0; MACROCYTOSIS 0
[2024-01-17 10:13] LABS: PLATELET ESTIMATE ADEQUATE
[2024-01-17 16:07] VITALS: BMI 30.3
[2024-01-17] MEDS: ACETAMINOPHEN 325 MG TABLET (FP) PO PRN (17:16)
[2024-01-17] MEDS: PEG 3350/NA SULF BICARB CL/KCL 4000 ML SOLN.RECON PO ONE (17:16)
[2024-01-17] MEDS ORDERED: POTASSIUM CHLORIDE 10 MEQ in SODIUM CHLORIDE 1,000 ML IVPB SCH (17:30)
[2024-01-17] MEDS: BISACODYL 10 MG SUPP.RECT PR ONE (19:52)
[2024-01-17] MEDS: POTASSIUM CHLORIDE 10 MEQ in SODIUM CHLORIDE 1,000 ML IVPB SCH (21:41)
[2024-01-17] MEDS: MELATONIN 5 MG TABLETS PO PRN (21:41)
[2024-01-18] MEDS: ONDANSETRON 4 MG/2 ML VIAL IVPUSH ONE (07:14)
[2024-01-18] MEDS: TAMSULOSIN HCL 0.4 MG CAP PO SCH (08:55)
[2024-01-18] MEDS ORDERED: OLANZapine 2.5 MG TABLET PO SCH (10:00)
[2024-01-18] MEDS: SERTRALINE HCL 50 MG TABLET (FP) PO SCH (10:05)
[2024-01-18] MEDS: LOSARTAN POTASSIUM 50 MG TABLET PO SCH (10:05)
[2024-01-18 10:08] LABS: BASO % 0.8 % (0-2.0); EOS % 0.6 % (0-4.5); HEMATOCRIT 42.1 % (35.4-49); LYMPH % 18.4 % (8-40); MCH 29.9 pg (25.7-33.7); MCHC 33.2 g/dl (32.0-35.9); MEAN CELL VOLUME 90.2 fl (80-96); MEAN PLT VOLUME 6.8 fl (7.5-11.1); MONO % 7.7 % (3.8-10.2); NEUT % 72.5 % (42.8-82.8); PLATELET COUNT 271 10^3/uL (134-434); RBC 4.67 M/mm3 (4.00-5.60); RDW 14.9 % (11.9-15.9); WHITE BLOOD COUNT 6.6 K/mm3 (4.0-10.0)
[2024-01-18 10:12] LABS: INR 0.97 (0.83-1.09)
[2024-01-18 10:23] LABS: POTASSIUM 4.2 mmol/L (3.5-5.1)
[2024-01-18 10:25] LABS: ALBUMIN 3.8 g/dl (3.4-5.0); CALCIUM 8.9 mg/dL (8.5-10.1)
[2024-01-18 10:28] LABS: CREATININE 0.8 mg/dL (0.55-1.3)
[2024-01-18 10:30] LABS: BILIRUBIN,TOTAL 0.6 mg/dL (0.2-1); TOT PROT 6.6 g/dl (6.4-8.2)
[2024-01-18 14:17] VITALS: RESP 18
[2024-01-18] MEDS: clonazePAM 0.5 MG TABLET PO ONE (15:27)
[2024-01-18 19:07] VITALS: BP 131/78; PULSE 76; TEMP 97.9
[2024-01-18] MEDS ORDERED: APIXABAN 5 MG TABLET PO SCH (22:00)
[2024-01-18] MEDS ORDERED: PATIENT'S OWN MEDICATION (NON-FORMULARY) (Icosapent Ethyl [Vascepa] 1 GM Capsule) PO SCH (22:00)
[2024-01-19] MEDS ORDERED: POLYETHYLENE GLYCOL (HEALTHYLAX) 3350 17 GM PACKET PO SCH (10:00)
== END 2024-01-18 19:05 | disposition home or self-care (01) | DRG 394 ==
LOC: JER 07:39 → JERBED 11:57 → OBSVTOIN 15:18 → J6S 15:41
PROVIDERS: ADMIT Internal Medicine; ATTEND Internal Medicine
PROC: 0DBL8ZX Excision of Transverse Colon, Via Natural or Artificial Opening Endoscopic, Diagnostic (ICD-10-PCS; principal; 2024-01-18 12:00)
DX: K64.8 Other hemorrhoids (principal); F84.5 Asperger's syndrome; K75.81 Nonalcoholic steatohepatitis (NASH); E11.9 Type 2 diabetes mellitus without complications; E78.5 Hyperlipidemia, unspecified; K59.09 Other constipation; I10 Essential (primary) hypertension; F41.0 Panic disorder [episodic paroxysmal anxiety]; E11.8 Type 2 diabetes mellitus with unspecified complications; K21.9 Gastro-esophageal reflux disease without esophagitis; F41.9 Anxiety disorder, unspecified; R33.9 Retention of urine, unspecified; F42.9 Obsessive-compulsive disorder, unspecified; N40.0 Benign prostatic hyperplasia without lower urinary tract symptoms; Z86.718 Personal history of other venous thrombosis and embolism
CPT/HCPCS: 0241U-QW; 36415; 71045-TC-FY; 71250-TC; 74176-TC; 80053; 82803; 82962; 83735; 84100; 84484; 85025; 85610; 85730; 88305-TC; 93005; 93010; 99285-25; G0378